=== PATIENT | female | born 1955 | race Caucasian/White ===

== ENCOUNTER 2019-10-09 09:03 | Inpatient (IN) | payer BC ==
[~2019-10-09] VITALS: Ht 162.6 cm; Wt 79.9 kg
[~2019-10-09 09:03] MED LIST: ALBU17AE23 IH; GUAI120S36 PO; LEVO750T6 PO; METH4TAB PO; MOXI400T PO; ONDA4TAB11 PO
[2019-10-09] MEDS ORDERED: LACTATED RINGERS 1,000 ML IV STA (09:42)
[2019-10-09] MEDS ORDERED: KETOROLAC 30 MG/ML VIAL IVP STA (09:42)
[2019-10-09] MEDS ORDERED: ONDANSETRON 4 MG/2 ML (SDV) Z0FRAN IVP ONE (09:45)
[2019-10-09] MEDS ORDERED: KETOROLAC 30 MG/ML VIAL ONE (09:49)
[2019-10-09] MEDS ORDERED: LACTATED RINGERS 1,000 ML IV ONE ×2 (09:49→13:49)
--- NOTE | 2019-10-09 09:56 | ED General ---
General Chief Complaint: Abdominal/GI Problems Stated Complaint: VOMITING;DIARRHEA;HEADACHE;CHILLS Nursing Triage Note: Pt c/o nausea, vomiting, diarrhea, headache, fatigue and body aches. Pt reports being swabbed for COVID-19 on Sunday at [facility], but hasn't received results yet. Nursing Sepsis Screen: No Definite Risk Source of Information: Patient Exam Limitations: No Limitations History of Present Illness Date Seen by Provider: Oct 09, 2019 Time Seen by Provider: 09:35 Initial Comments here with nausea, vomiting, diarrhea, headache, fatigue and body aches. Seen on 10/04 at [facility] for same as well as here and worked up for possible tick bites. Tick studies ordered. Also had COVID evaluation done at [facility] on the and she does not know the results. States she continues to feel poorly. Did have takes on her late last week and thought one might have been a little engorged. Also has traveled to [facility] a week ago. Denies COVID contacts. The doxycycline that she is on is not helping and neither is the nausea medicine. Overall states she feels weak and not well. Timing/Duration: 5-6 Days, Getting Worse Severity: Moderate Modifying Factors: improves with Rest Associated Systoms: Cough; No Diaphoresis; Fever/Chills, Malaise, Nausea/Vomiting; No Shortness of Air; Weakness Allergies and Home Medications Allergies Coded Allergies: codeine (Unverified Adverse Reaction, Unknown, NAUSEA/VOMITTING, 10/07/19) prednisone (Unverified Adverse Reaction, Unknown, PSYCH, 10/07/19) Uncoded Allergies: PENICILLIN (Adverse Reaction, Unknown, 10/07/19) Home Medications Albuterol 17 Gm Aerosol, 1 GM IH Q6H Prescribed by: JEVON ALANIZ MD on 07/12/09203 Guaifenesin/D-Methorphan Hb 120 Ml Syrup, 10 ML PO Q6H Prescribed by: JONATAN HERNANDEZ on 02/12/14 173 Levofloxacin 750 Mg Tablet, 750 MG PO DAILY Prescribed by: JONATAN HERNANDEZ on 02/12/14 172 Methylprednisolone 4 Mg/Dose-Pack Tab.ds.pk, 0 PO UD Prescribed by: JEVON ALANIZ MD on 07/12/09203 Moxifloxacin Hcl 400 Mg Tablet, 400 MG PO DAILY Prescribed by: JEVON ALANIZ MD on 5/24/10 0204 Ondansetron 4 Mg Tab.rapdis, 4 MG PO Q6H PRN for NAUSEA/VOMITING Prescribed by: CINTIA COPE on 10/07/19 1351 Patient Home Medication List Home Medication List Reviewed: Yes Review of Systems Review of Systems Constitutional: see HPI; No chills; fever, malaise EENTM: No nose congestion, No nose pain, No throat pain Respiratory: cough, short of breath Cardiovascular: No chest pain, No edema Gastrointestinal: No abdominal pain; diarrhea, nausea, vomiting Genitourinary: No dysuria, No frequency Musculoskeletal: muscle pain Skin: no symptoms reported All Other Systems Reviewed Negative Unless Noted: Yes Past Vnnnjkm-Yylxhz-Ewlebq Hx Past Med/Social Hx: Reviewed Nursing Past Med/Soc Hx Patient Social History Alcohol Use: Occasionally Uses Alcohol Beverage of Choice: Vodka Recreational Drug Use: No Smoking Status: Former Smoker Type Used: Cigarettes 2nd Hand Smoke Exposure: No Recent Foreign Travel: No Contact w/Someone Who Travel: No Recent Infectious Disease Expo: No Immunizations Up To Date Date of Influenza Vaccine: Jan 19, 2014 Past Medical History Surgeries: Yes (HENRIA, breast implants) Breast, Hysterectomy, Oophorectomy Respiratory: No Cardiac: Yes High Cholesterol 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 oz. 63.559507sh; 25.00 BMI Method:Stated General Appearance: No Apparent Distress, WD/WN HEENT: PERRL/EOMI, Pharynx Normal Neck: Non Tender, Supple Respiratory: Lungs Clear, Normal Breath Sounds, Other (O2 sat 91% on room air) Cardiovascular: No Murmur, Tachycardia Gastrointestinal: Non Tender, Soft Back: Normal Inspection, No CVA Tenderness, No Vertebral Tenderness Extremity: Normal Range of Motion, Non Tender Neurologic/Psychiatric: Alert, Oriented x3 Skin: normal color, warm/dry Focused Exam Lactate Level 10/09/19 10:55: Lactic Acid Level 1.19 Lactic Acid Level Laboratory Tests Test 10/09/19 10:55 Lactic Acid Level 1.19 MMOL/L (0.50-2.00) Progress/Results/Core Measures Suspected Sepsis Recent Fever Within 48 Hours: Yes Infection Criteria Present: None New/Unexplained Altered Menta: No Sepsis Screen: No Definite Risk SIRS Temperature: Pulse: 96 Respiratory Rate: 20 Laboratory Tests 10/09/19 10:55: White Blood Count 3.3L Blood Pressure 108 /60 Mean: 76 10/09/19 10:55: Lactic Acid Level 1.19 Laboratory Tests 10/09/19 10:55: Creatinine 0.58L, INR Comment 1.0, Platelet Count 135, Total Bilirubin 0.3 Results/Orders Lab Results Laboratory Tests Test 10/09/19 10:15 10/09/19 10:55 Range/Units Urine Color YELLOW Urine Clarity CLEAR Urine pH 5.5 5-9 Urine Specific [place] 1.025 H 1.016-1.022 Urine Protein 1+ H NEGATIVE Urine Glucose (UA) NEGATIVE NEGATIVE Urine Ketones 1+ H NEGATIVE Urine Nitrite NEGATIVE NEGATIVE Urine Bilirubin NEGATIVE NEGATIVE Urine Urobilinogen 0.2 < = 1.0 MG/DL Urine Leukocyte Esterase NEGATIVE NEGATIVE Urine RBC (Auto) NEGATIVE NEGATIVE Urine RBC NONE /HPF Urine WBC RARE /HPF Urine Squamous Epithelial Cells 2-5 /HPF Urine Crystals NONE /LPF Urine Bacteria TRACE /HPF Urine Casts NONE /LPF Urine Mucus SMALL H /LPF Urine Culture Indicated NO White Blood Count 3.3 L 4.3-11.0 10^3/uL Red Blood Count 4.20 L 4.35-5.85 10^6/uL Hemoglobin 13.2 11.5-16.0 G/DL Hematocrit 39 35-52 % Mean Corpuscular Volume 92 80-99 FL Mean Corpuscular Hemoglobin 31 25-34 PG Mean Corpuscular Hemoglobin Concent 34 32-36 G/DL Red Cell Distribution Width 12.8 10.0-14.5 % Platelet Count 135 130-400 10^3/uL Mean Platelet Volume 10.2 7.4-10.4 FL Neutrophils (%) (Auto) 66 42-75 % Lymphocytes (%) (Auto) 22 12-44 % Monocytes (%) (Auto) 12 0-12 % Eosinophils (%) (Auto) 0 0-10 % Basophils (%) (Auto) 0 0-10 % Neutrophils # (Auto) 2.2 1.8-7.8 X 10^3 Lymphocytes # (Auto) 0.7 L 1.0-4.0 X 10^3 Monocytes # (Auto) 0.4 0.0-1.0 X 10^3 Eosinophils # (Auto) 0.0 0.0-0.3 10^3/uL Basophils # (Auto) 0.0 0.0-0.1 10^3/uL Prothrombin Time 13.1 12.2-14.7 SEC INR Comment 1.0 0.8-1.4 Activated Partial Thromboplast Time 36 H 24-35 SEC D-Dimer 2.01 H 0.00-0.49 UG/ML Sodium Level 132 L 135-145 MMOL/L Potassium Level 3.3 L 3.6-5.0 MMOL/L Chloride Level 101 98-107 MMOL/L Carbon Dioxide Level 22 21-32 MMOL/L Anion Gap 9 5-14 MMOL/L Blood Urea Nitrogen 9 7-18 MG/DL Creatinine 0.58 L 0.60-1.30 MG/DL Estimat Glomerular Filtration Rate > 60 BUN/Creatinine Ratio 16 Glucose Level 123 H 70-105 MG/DL Lactic Acid Level 1.19 0.50-2.00 MMOL/L Calcium Level 8.0 L 8.5-10.1 MG/DL Corrected Calcium 8.4 L 8.5-10.1 MG/DL Total Bilirubin 0.3 0.1-1.0 MG/DL Aspartate Amino Transf (AST/SGOT) 48 H 5-34 U/L Alanine Aminotransferase (ALT/SGPT) 69 H 0-55 U/L Alkaline Phosphatase 51 40-136 U/L Lactate Dehydrogenase 276 H 125-220 U/L C-Reactive Protein High Sensitivity 2.29 H 0.00-0.50 MG/DL Total Protein 6.3 L 6.4-8.2 GM/DL Albumin 3.5 3.2-4.5 GM/DL My Orders Orders - JADYN FOSTER MD Cbc With Automated Diff (10/09/19 09:42) Comprehensive Metabolic Panel (10/09/19 09:42) Blood Culture (10/09/19 09:42) Sputum Culture (10/09/19 09:42) Urinalysis (10/09/19 09:42) Urine Culture (10/09/19 09:42) Protime With Inr (10/09/19 09:42) Partial Thromboplastin Time (10/09/19 09:42) Chest 1 View, Ap/Pa Only (10/09/19 09:42) Ed Iv/Invasive Line Start (10/09/19 09:42) Vital Signs Adult Sepsis Patie Q15M (10/09/19 09:42) O2 (10/09/19 09:42) Remove Rings In Anticipation O (10/09/19 09:42) Lactic Acid Analyzer (10/09/19 09:42) Fibrin Degradation Products (10/09/19 09:42) Procalcitonin (Pct) (10/09/19 09:42) Hs C Reactive Protein (10/09/19 09:42) Erythrocyte Sedimentation Rate (10/09/19 09:42) LDH (10/09/19 09:42) Ondansetron Injection (Zofran Injectio (10/09/19 09:45) Lactated Ringers (Lr 1000 Ml Iv Solution (10/09/19 09:42) Ketorolac Injection (Toradol Injection) (10/09/19 09:42) Covid-19 External Lab Results (10/09/19 09:56) Dexamethasone Tablet (Decadron Tablet) (10/09/19 10:33) Acetaminophen Tablet (Tylenol Tablet) (10/09/19 11:56) Fentanyl Injection (Sublimaze Injection (10/09/19 11:56) Medications Given in ED Current Medications Medications Dose Ordered Sig/Steven Route Start Time Stop Time Status Last Admin Dose Admin Ondansetron HCl 4 mg ONCE ONCE IVP 10/09/19 09:45 10/09/19 09:46 DC 10/09/19 10:03 4 MG Vital Signs/I&O 10/09/19 09:15 Temp 37.5 Pulse 96 Resp 20 B/P (MAP) 108/60 (76) Pulse Ox 94 O2 Delivery Room Air Capillary Refill : Less Than 3 Seconds Blood Pressure Mean: 76 Progress Note : Progress Note seen and evaluated. IV, labs, UA, chest x-ray and COVID and influenza screens ordered. I did discuss the case with [facility] sponsorship manager and found that the patient actually is COVID positive as noted today on recheck return of lab results. We have canceled R influenza and COVID screen subsequently. LR 1 L bolus, Zofran 4 mg IV and Toradol 15 mg IV ordered. We will add 6 mg of Decadron by mouth due to COVID findings relative hypoxia. Monitor patient. 1125: I did discuss the case with Dr. Stephens, on-call for the positive COVID-19 service. We reviewed patient's labs thus far and she is pending x-ray but he accepts her for admission given her need for oxygen and positive status. Monitor patient. 1209: Orders are written. Chest x-ray radiology read shows no acute findings although I disagree and think that there are some right lower lateral infiltrates. I dis cussed this with the radiologist sponsorship manager who agrees. Likely COVID related to pneumonia. Pro-calcitonin pending. Dr. Stephens updated. Patient agrees to admission. Tylenol 1 g by mouth and fentanyl 50 g IV ordered for headache. Diagnostic Imaging Diagonstic Imaging: Xray Plain Films/CT/US/NM/MRI: chest Comments [facility] [place], [place] NAME: SUMI ZAYAS [facility] REC#: [id number] PT STATUS: REG ER : 1955 PHYSICIAN: JADYN FOSTER MD ADMIT DATE: 10/09/19/ER Draft Date of Exam:10/09/19 CHEST 1 VIEW, AP/PA ONLY INDICATION: Fatigue, hypoxia and COVID-19 positive. AP view of the chest is obtained with comparison made study of 02/12/2014. FINDINGS: Heart size and pulmonary vascularity are within normal limits, and the lungs are clear, bilaterally. IMPRESSION: Unremarkable chest. Dictated on workstation # [id number] Dict: 10/09/19 1138 Trans: 10/09/19 1140 CVB [id number] Interpreted by: OMAIRA CHOE MD Electronically signed by: Departure Impression Primary Impression: 2019 novel coronavirus disease (COVID-19) Disposition: ADMITTED INPATIENT Condition: Stable Admissions Decision to Admit Reason: Admit from ER (General) Decision to Admit/Date: Oct 09, 2019 Time/Decision to Admit Time: 11:25 Departure-Patient Inst. Referrals: NO,LOCAL PHYSICIAN (PCP/Family) Primary Care Physician JADYN FOSTER MD Oct 09, 2019 09:56
--- NOTE | 2019-10-09 10:27 | NUR ---
Lab called to request blood draw.
[2019-10-09] MEDS ORDERED: dexAMETHasone 6 MG TAB (DECADRON) PO STA (10:33)
[2019-10-09] MEDS ORDERED: dexAMETHasone 6 MG TAB (DECADRON) ONE (10:51)
[2019-10-09 11:16] LABS: BASOPHILS % (AUTO) 0 % (0-10); EOSINOPHILS % (AUTO) 0 % (0-10); HEMATOCRIT 39 % (35-52); HEMOGLOBIN 13.2 G/DL (11.5-16.0); LYMPHOCYTES # (AUTO) 0.7 X 10^3 (1.0-4.0); LYMPHOCYTES % (AUTO) 22 % (12-44); MEAN CORPUSCULAR HEMOGLOBIN 31 PG (25-34); MEAN CORPUSCULAR HGB CONC 34 G/DL (32-36); MEAN CORPUSCULAR VOLUME 92 FL (80-99); MEAN PLATELET VOLUME 10.2 FL (7.4-10.4); MONOCYTES # (AUTO) 0.4 X 10^3 (0.0-1.0); MONOCYTES % (AUTO) 12 % (0-12); NEUTROPHILS # (AUTO) 2.2 X 10^3 (1.8-7.8); NEUTROPHILS % (AUTO) 66 % (42-75); PLATELET COUNT 135 10^3/uL (130-400); RED CELL DISTRIBUTION WIDTH 12.8 % (10.0-14.5); WHITE BLOOD COUNT 3.3 10^3/uL (4.3-11.0)
[2019-10-09 11:17] LABS: CLARITY,URINE CLEAR; COLOR,URINE YELLOW
[2019-10-09 11:18] LABS: BACTERIA,URINE TRACE /HPF; BILIRUBIN,URINE NEGATIVE (NEGATIVE); GLUCOSE, URINE (UA) NEGATIVE (NEGATIVE); KETONES,URINE 1+ (NEGATIVE); LEUKOCYTE ESTERASE ,URINE NEGATIVE (NEGATIVE); NITRITE,URINE NEGATIVE (NEGATIVE); PH,URINE 5.5 (5-9); PROTEIN,URINE 1+ (NEGATIVE); WBC,URINE RARE /HPF
[2019-10-09 11:37] LABS: FIBRIN DEGRADATION PRODUCTS 2.01 UG/ML (0.00-0.49); PROTHROMBIN TIME PATIENT 13.1 SEC (12.2-14.7)
--- NOTE | 2019-10-09 11:40 | Diagnostic Imaging Report ---
INDICATION: Fatigue, hypoxia and COVID-19 positive. AP view of the chest is obtained with comparison made study of 02/12/2014. FINDINGS: Heart size and pulmonary vascularity are within normal limits, and the lungs are clear, bilaterally. IMPRESSION: Unremarkable chest. Dictated by: Dictated on workstation # [id number]
[2019-10-09] MEDS ORDERED: fentaNYL INJECTION 100 MCG/2 ML AMP IVP STA (11:56)
[2019-10-09] MEDS ORDERED: ACETAMINOPHEN 500 MG TAB (TYLENOL) PO STA (11:56)
[2019-10-09 12:00] LABS: ALANINE AMINOTRANSFERASE 69 U/L (0-55); ALBUMIN 3.5 GM/DL (3.2-4.5); ALKALINE PHOSPHATASE 51 U/L (40-136); BILIRUBIN,TOTAL 0.3 MG/DL (0.1-1.0); BUN/CREATININE RATIO 16; CARBON DIOXIDE 22 MMOL/L (21-32); CHLORIDE 101 MMOL/L (98-107); CREATININE SERUM 0.58 MG/DL (0.60-1.30); GFR ESTIMATED > 60; GLUCOSE 123 MG/DL (70-105); POTASSIUM 3.3 MMOL/L (3.6-5.0); SODIUM 132 MMOL/L (135-145); TOTAL PROTEIN 6.3 GM/DL (6.4-8.2)
[2019-10-09 12:22] LABS: ERYTHROCYTE SEDIMENTATION RATE 24 MM/HR (0-30)
[2019-10-09 13:48] VITALS: BP 117/84
[2019-10-09 13:49] VITALS: BP 117/84
[2019-10-09] MEDS ORDERED: ACETAMINOPHEN 500 MG TAB (TYLENOL) PO PRN (14:15)
[2019-10-09] MEDS ORDERED: fentaNYL INJECTION 100 MCG/2 ML AMP IV PRN (14:15)
[2019-10-09] MEDS ORDERED: LACTATED RINGERS 1,000 ML IV SCH (14:15)
[2019-10-09] MEDS ORDERED: FLUT16SP22 NSEACH (15:26)
[2019-10-09] MEDS ORDERED: DOXY100C2 PO (15:26)
[2019-10-09] MEDS ORDERED: ALBU18HF2 INH (15:26)
[2019-10-09] MEDS ORDERED: ASPI-983 PO (15:26)
[2019-10-09] MEDS ORDERED: CYAN500T52 SL (15:26)
[2019-10-09] MEDS ORDERED: FLUT1BLS IN (15:26)
[2019-10-09] MEDS ORDERED: CHOL100048 PO (15:26)
[2019-10-09] MEDS ORDERED: CETI10TA17 PO (15:26)
[2019-10-09] MEDS ORDERED: MONT10TA26 PO (15:26)
[2019-10-09] MEDS ORDERED: ONDA4TAB11 PO (15:26)
[2019-10-09] MEDS ORDERED: ASCO250T17 PO (15:26)
--- NOTE | 2019-10-09 15:26 | NUR ---
SPOKE WITH THE PT (I CALLED HER ROOM PHONE) AND WENT THRU THE EXT MED HISTORY TO COMPLETE THE MED REC PT SAYS SHE USES BREO AND ALBUTEROL HFA NEEDED OTC MEDS: ZYRTEC VIT B12 VIT D3 VIT C ASPIRIN 81MG
[2019-10-09 16:00] VITALS: BP 112/73
[2019-10-09] MEDS ORDERED: diphenhydrAMINE 25 MG TAB (BENADRYL) PO PRN (18:30)
[2019-10-09] MEDS ORDERED: ONDANSETRON 4 MG (ZOFRAN) ORAL DISSOLVE TAB PO PRN (18:30)
[2019-10-09] MEDS ORDERED: BISACODYL 10 MG SUPP (DULCOLAX) PR PRN (18:30)
[2019-10-09] MEDS ORDERED: polyethylene glycoL POWDER 17 GM (MIRALAX) PACK PO PRN (18:30)
[2019-10-09] MEDS ORDERED: ACETAMINOPHEN 325 MG TABLET PO PRN (18:30)
[2019-10-09] MEDS ORDERED: ANTACID SUSP 30 ML UDC (MYLANTA) PO PRN (18:30)
[2019-10-09 18:58] VITALS: BP 108/60
[2019-10-09] MEDS: ENOXAPARIN 40 MG/0.4 ML (LOVENOX) SYR SC SCH (19:01)
[2019-10-09] MEDS: ALPRAZolam 0.5 MG (XANAX) TAB PO PRN (19:01)
--- NOTE | 2019-10-09 19:06 | NUR ---
MDI ALBUTEROL Q6 AND PRN. AEROBEKA PRN FOR SECRETION CLEARANCE.RT WILL REASSESS IN 74H Addendum: 10/09/19 at 1906 by SARAH WILKINSON RT Amended: Links added.
[2019-10-09 20:00] VITALS: BP 103/66
[2019-10-09] MEDS: MONTELUKAST 10 MG (SINGULAIR) TAB PO SCH (20:20)
[2019-10-09] MEDS: inSUlin ASPART (NovoLOG) 1 UNIT/0.01 ML (CHARGE PER UNIT) SC SCH (20:20)
[2019-10-09] MEDS: DOCUSATE SODIUM 100 MG (COLACE) CAP PO SCH (20:21)
[2019-10-09] MEDS: SENNOSIDES 8.6 MG (SENOKOT) TAB PO SCH (20:21)
[2019-10-09] MEDS: ADVAIR HFA 115/21 MCG INHALER 8 GM IH PRN (22:17)
[2019-10-09] MEDS: RT-ALBUTEROL INHALER HFA (VENTOLIN HFA) 18 GM IH SCH (22:17)
[2019-10-10] VITALS (7 sets, daily range): BP systolic 92–135; BP diastolic 50–80
[2019-10-10] MEDS: ADVAIR HFA 115/21 MCG INHALER 8 GM IH PRN ×2 (07:01→19:07)
[2019-10-10] MEDS: RT-ALBUTEROL INHALER HFA (VENTOLIN HFA) 18 GM IH SCH ×3 (07:01→19:06)
[2019-10-10] MEDS: inSUlin ASPART (NovoLOG) 1 UNIT/0.01 ML (CHARGE PER UNIT) SC SCH ×5 (07:35→20:35)
[2019-10-10 07:50] LABS: BASOPHILS % (AUTO) 0 % (0-10); EOSINOPHILS % (AUTO) 0 % (0-10); HEMATOCRIT 38 % (35-52); HEMOGLOBIN 13.1 G/DL (11.5-16.0); LYMPHOCYTES # (AUTO) 1.4 X 10^3 (1.0-4.0); LYMPHOCYTES % (AUTO) 38 % (12-44); MEAN CORPUSCULAR HEMOGLOBIN 32 PG (25-34); MEAN CORPUSCULAR HGB CONC 34 G/DL (32-36); MEAN CORPUSCULAR VOLUME 93 FL (80-99); MEAN PLATELET VOLUME 10.1 FL (7.4-10.4); MONOCYTES # (AUTO) 0.3 X 10^3 (0.0-1.0); MONOCYTES % (AUTO) 8 % (0-12); NEUTROPHILS # (AUTO) 1.9 X 10^3 (1.8-7.8); NEUTROPHILS % (AUTO) 53 % (42-75); PLATELET COUNT 161 10^3/uL (130-400); RED CELL DISTRIBUTION WIDTH 12.8 % (10.0-14.5); WHITE BLOOD COUNT 3.6 10^3/uL (4.3-11.0)
[2019-10-10 08:11] LABS: ALANINE AMINOTRANSFERASE 62 U/L (0-55); ALBUMIN 3.5 GM/DL (3.2-4.5); ALKALINE PHOSPHATASE 49 U/L (40-136); BILIRUBIN,TOTAL 0.3 MG/DL (0.1-1.0); BUN/CREATININE RATIO 12; CALCIUM 8.3 MG/DL (8.5-10.1); CARBON DIOXIDE 23 MMOL/L (21-32); CHLORIDE 100 MMOL/L (98-107); CREATININE SERUM 0.59 MG/DL (0.60-1.30); GFR ESTIMATED > 60; GLUCOSE 108 MG/DL (70-105); MAGNESIUM 1.6 MG/DL (1.6-2.4); POTASSIUM 3.3 MMOL/L (3.6-5.0); SODIUM 132 MMOL/L (135-145); TOTAL PROTEIN 6.6 GM/DL (6.4-8.2)
[2019-10-10] MEDS: POTASSIUM CL 10MEQ/50ML IVPB 50 ML IV SCH (08:16)
[2019-10-10] MEDS: KCL 20 MEQ TAB (K-DUR) PO SCH (08:17)
[2019-10-10] MEDS: MAGNESIUM 1 GM/100 ML IVPB 100 ML IV SCH ×3 (08:17→09:48)
[2019-10-10] MEDS ORDERED: KCL 20 MEQ TAB (K-DUR) PO ONE ×2 (08:30→10:30)
[2019-10-10] MEDS: ASPIRIN E.C. 81 MG (ECOTRIN) TAB PO SCH (08:38)
[2019-10-10] MEDS: dexAMETHasone 6 MG TAB (DECADRON) PO SCH (08:38)
[2019-10-10] MEDS: DOCUSATE SODIUM 100 MG (COLACE) CAP PO SCH ×2 (08:40→20:34)
[2019-10-10] MEDS: SENNOSIDES 8.6 MG (SENOKOT) TAB PO SCH ×2 (08:40→20:34)
[2019-10-10] MEDS: FLUTICASONE NASAL SPRAY (FLONASE) 16 GM BTL NS SCH (08:40)
--- NOTE | 2019-10-10 10:14 | NUR ---
Received dietary consult for MST score. Note pt is currently COVID PUI. Will monitor PO intake and have full assessment at later date, pending results. Jacque Ann, MS, RD, LD
[2019-10-10] MEDS ORDERED: REMDESIVIR INJ (NON-FORMULARY) 200 MG in NS (IVPB) 210 ML IV NR ×2 (12:00→15:00)
[2019-10-10] MEDS: ENOXAPARIN 40 MG/0.4 ML (LOVENOX) SYR SC SCH (17:37)
--- NOTE | 2019-10-10 20:18 | History & Physical-Hospitalist ---
History of Present Illness HPI/Chief Complaint Corrine Cortez is a 63 year old female with PMH asthma who presented with malaise. She was evaluated for COVID at [facility] on 10/04 and tested positive. She reports having body aches. She reports nausea and vomiting. She has had diarrhea. She reports headaches. She is not having any significant shortness of breath or cough. She denies any change in taste or smell. She denies any fevers or chills. She denies chest pain. Source: patient Exam Limitations: no limitations Date Seen 10/10/19 Time Seen by a Provider: 11:00 Attending Physician Ne Early MD PCP No,Local Physician Referring Physician Date of Admission Oct 09, 2019 at 12:51 Home Medications & Allergies Home Medications Reviewed patient Home Medication Reconciliation performed by pharmacy medication reconciliations county program technician and/or nursing. Patients Allergies have been reviewed. Allergies Allergies Coded Allergies Penicillins (Unverified Adverse Reaction, Unknown, 10/09/19) codeine (Unverified Adverse Reaction, Unknown, NAUSEA/VOMITTING, 10/07/19) prednisone (Unverified Adverse Reaction, Unknown, PSYCH, 10/07/19) Uncoded Allergies PENICILLIN ( Adverse Reaction, Unknown, 10/07/19) Past Itjnlmt-Ncyzqd-Trvrqr Hx Past Med/Social Hx: Reviewed Nursing Past Med/Soc Hx Patient Social History Alcohol Use: Occasionally Uses Alcohol Beverage of Choice: Vodka Recreational Drug Use: No Smoking Status: Former Smoker Type Used: Cigarettes 2nd Hand Smoke Exposure: No Recent Foreign Travel: No Contact w/other who traveled: No Recent Infectious Disease Expo: No Immunizations Up To Date Date of Pneumonia Vaccine: Oct 08, 2017 Date of Influenza Vaccine: Jan 19, 2014 Past Medical History Surgeries: Breast, Hysterectomy, Oophorectomy Cardiac: High Cholesterol Hysterectomy Family History Reviewed Nursing Family Hx No Pertinent Family Hx Review of Systems Constitutional: malaise EENTM: no symptoms reported Respiratory: no symptoms reported Cardiovascular: no symptoms reported Gastrointestinal: diarrhea, nausea, vomiting Genitourinary: no symptoms reported Musculoskeletal: muscle pain Skin: no symptoms reported Psychiatric/Neurological: No Symptoms Reported Physical Exam Physical Exam Vital Signs Vital Signs - First Documented 10/09/19 10/09/19 10/09/19 09:15 14:20 18:58 Temp 37.5 Pulse 96 Resp 20 B/P (MAP) 108/60 (76) Pulse Ox 94 O2 Delivery Room Air O2 Flow Rate 2.00 FiO2 21 Capillary Refill : Less Than 3 Seconds Height, Weight, BMI Height: 5'4" Weight: 140lbs. oz. 63.701974ga; 30.33 BMI Method:Stated General Appearance: No Apparent Distress, Obese HEENT: PERRL/EOMI, Pharynx Normal Neck: Normal Inspection, Supple Respiratory: Lungs Clear, Normal Breath Sounds, No Respiratory Distress Cardiovascular: Regular Rate, Rhythm, No Edema, No Murmur Gastrointestinal: Normal Bowel Sounds, Non Tender, Soft Extremity: Normal Inspection, Non Tender, No Pedal Edema Neurologic/Psychiatric: Alert, Oriented x3, No Motor/Sensory Deficits, Normal Mood/Affect Skin: Normal Color, Warm/Dry Results Results/Procedures Labs Laboratory Tests 10/09/19 10:55 10/10/19 07:35 Patient resulted labs reviewed. Imaging: Reviewed Imaging Report Assessment/Plan Admission Diagnosis Acute respiratory failure due to COVID-19 Admission Status: Inpatient Order (span 2 midnights) Reason for Inpatient Admission: Respiratory failure requiring supplemental oxygen COVID requiring IV antivirals Assessment and Plan COVID-19 Acute respiratory failure with hypoxia Elevated LFTs Steroid induced hyperglycemia Asthma -COVID PCR positive 10/04 at [facility] -Oxygen supplementation as needed, requiring 3 L this morning -Started on Decadron, continue -Discussed risks and benefits of Remdesivir and she provided consent to begin treatment -Monitor CMP daily -Sliding scale insulin -Continue home inhalers -MAT protocol Obesity -Clinically significant, no acute management needs 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
[2019-10-10] MEDS: MONTELUKAST 10 MG (SINGULAIR) TAB PO SCH (20:34)
[2019-10-10] MEDS: ALPRAZolam 0.5 MG (XANAX) TAB PO PRN (21:02)
[2019-10-10] MEDS: MELATONIN 3 MG TABLET PO PRN (21:02)
[2019-10-11] VITALS: BP 125/71
[2019-10-11] MEDS: RT-ALBUTEROL INHALER HFA (VENTOLIN HFA) 18 GM IH SCH ×4 (02:15→20:29)
[2019-10-11 04:00] VITALS: BP 134/72
[2019-10-11 06:01] LABS: BASOPHILS % (AUTO) 0 % (0-10); EOSINOPHILS % (AUTO) 0 % (0-10); HEMATOCRIT 37 % (35-52); HEMOGLOBIN 12.6 G/DL (11.5-16.0); LYMPHOCYTES # (AUTO) 1.2 X 10^3 (1.0-4.0); LYMPHOCYTES % (AUTO) 30 % (12-44); MEAN CORPUSCULAR HEMOGLOBIN 31 PG (25-34); MEAN CORPUSCULAR HGB CONC 34 G/DL (32-36); MEAN CORPUSCULAR VOLUME 93 FL (80-99); MONOCYTES # (AUTO) 0.4 X 10^3 (0.0-1.0); MONOCYTES % (AUTO) 10 % (0-12); NEUTROPHILS # (AUTO) 2.5 X 10^3 (1.8-7.8); NEUTROPHILS % (AUTO) 61 % (42-75); PLATELET COUNT 205 10^3/uL (130-400); RED CELL DISTRIBUTION WIDTH 12.6 % (10.0-14.5); WHITE BLOOD COUNT 4.2 10^3/uL (4.3-11.0)
[2019-10-11 06:28] LABS: ALANINE AMINOTRANSFERASE 55 U/L (0-55); ALBUMIN 3.4 GM/DL (3.2-4.5); ALKALINE PHOSPHATASE 53 U/L (40-136); BILIRUBIN,TOTAL 0.2 MG/DL (0.1-1.0); BUN/CREATININE RATIO 18; CALCIUM 8.5 MG/DL (8.5-10.1); CARBON DIOXIDE 25 MMOL/L (21-32); CHLORIDE 104 MMOL/L (98-107); GFR ESTIMATED > 60; GLUCOSE 88 MG/DL (70-105); MAGNESIUM 1.8 MG/DL (1.6-2.4); POTASSIUM 3.4 MMOL/L (3.6-5.0); SODIUM 139 MMOL/L (135-145); TOTAL PROTEIN 6.2 GM/DL (6.4-8.2)
[2019-10-11] MEDS: MAGNESIUM 1 GM/100 ML IVPB 100 ML IV SCH (06:42)
[2019-10-11] MEDS: POTASSIUM CL 10MEQ/50ML IVPB 50 ML IV SCH (06:43)
[2019-10-11] MEDS: KCL 20 MEQ TAB (K-DUR) PO SCH (06:44)
[2019-10-11] MEDS: inSUlin ASPART (NovoLOG) 1 UNIT/0.01 ML (CHARGE PER UNIT) SC SCH ×4 (06:44→21:51)
[2019-10-11] MEDS ORDERED: KCL 20 MEQ TAB (K-DUR) PO ONE (06:45)
[2019-10-11] MEDS: ADVAIR HFA 115/21 MCG INHALER 8 GM IH PRN (07:22)
[2019-10-11] MEDS: ASPIRIN E.C. 81 MG (ECOTRIN) TAB PO SCH (08:04)
[2019-10-11] MEDS: FLUTICASONE NASAL SPRAY (FLONASE) 16 GM BTL NS SCH (08:04)
[2019-10-11] MEDS: dexAMETHasone 6 MG TAB (DECADRON) PO SCH (08:04)
[2019-10-11] MEDS: DOCUSATE SODIUM 100 MG (COLACE) CAP PO SCH ×2 (08:05→20:40)
[2019-10-11] MEDS: SENNOSIDES 8.6 MG (SENOKOT) TAB PO SCH ×2 (08:05→20:40)
[2019-10-11 08:06] VITALS: BP 108/71
[2019-10-11] MEDS: REMDESIVIR INJ (NON-FORMULARY) 100 MG in NS (IVPB) 230 ML IV SCH (09:10)
[2019-10-11] MEDS: ONDANSETRON 4 MG/2 ML (SDV) Z0FRAN IV PRN (11:51)
[2019-10-11 12:00] VITALS: BP 113/71
--- NOTE | 2019-10-11 13:14 | NUR ---
RN WENT INTO PTS ROOM TO DELIVER LUNCH TRAY AND PT TOLD ME THAT SHE NEEDED INHALED STEROID INHALER PER HER FRIEND DR RILEY IN [facility]. SHE ASKED ME TO TELL DR EARLY. DR EARLY NOTIFIED AND TOLD RN THAT SHE DOES HAVE ADVAIR THAT SHE CAN USE PRN AND IT DOES HAVE A STEROID IN IT. PT INFORMED BY RN .
--- NOTE | 2019-10-11 13:18 | Progress Note - Hospitalist ---
Subjective HPI/CC On Admission Date Seen by Provider: Oct 11, 2019 Time Seen by Provider: 11:30 Corrine Cortez is a 63 year old female with PMH asthma who presented with malaise. She was evaluated for COVID at [facility] on 10/04 and tested positive. She reports having body aches. She reports nausea and vomiting. She has had diarrhea. She reports headaches. She is not having any significant shortness of breath or cough. She denies any change in taste or smell. She denies any fevers or chills. She denies chest pain. Subjective/Events-last exam she reports feeling a bit better today. She is feeling a bit nauseous though. She is up in her bedside chair. She has been walking around her room. She denies any fevers or chills. Focused Exam Lactate Level 10/09/19 10:55: Lactic Acid Level 1.19 Objective Exam Vital Signs Vital Signs Date Time Temp Pulse Resp B/P (MAP) Pulse Ox O2 Delivery O2 Flow Rate FiO2 10/11/19 08:06 35.7 83 22 108/71 (83) 91 Nasal Cannula 3.00 10/09/19 18:58 21 Capillary Refill : Less Than 3 Seconds General Appearance: No Apparent Distress, Obese Respiratory: Lungs Clear, Normal Breath Sounds, No Respiratory Distress Cardiovascular: Regular Rate, Rhythm, No Edema, No Murmur Gastrointestinal: Normal Bowel Sounds, Non Tender, Soft Extremity: Normal Inspection, Non Tender, No Pedal Edema Neurologic/Psychiatric: Alert, Oriented x3, No Motor/Sensory Deficits, Normal Mood/Affect Skin: Normal Color, Warm/Dry Results/Procedures Lab Laboratory Tests 10/11/19 05:50 Patient resulted labs reviewed. 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
[2019-10-11] MEDS ORDERED: HOLD METFORMIN - RECEIVED CONTRAST 20 ML VIAL IV SCH (13:30)
[2019-10-11] MEDS ORDERED: IOHEXOL 350 MG/ML 100 ML (OMNIPAQUE 350) VIAL IV ONE (13:30)
[2019-10-11] MEDS ORDERED: NS 100 ML (IVPB) BAG IV ONE (13:30)
[2019-10-11 16:19] VITALS: BP 103/69
--- NOTE | 2019-10-11 16:42 | Diagnostic Imaging Report ---
PROCEDURE: CT angiography of the chest with contrast. TECHNIQUE: Multiple contiguous axial images were obtained through the chest after uneventful bolus administration of intravenous contrast. 3D reconstructed CTA MIP acquisitions were also performed. Auto Exposure Controls were utilized during the CT exam to meet ALARA standards for radiation dose reduction. INDICATION: Hypoxia. Covid positive. COMPARISON: Chest radiograph 10/09/2019. FINDINGS: Examination is mildly limited by respiratory motion and contrast timing. No large or central pulmonary embolus. Normal caliber thoracic aorta. Normal heart size. No pericardial effusion. No mediastinal, hilar or axillary lymphadenopathy. Bilateral breast prostheses. Geographic groundglass opacities throughout the lungs are greatest in the right upper lobe. Linear scarring and/or atelectasis in the lung bases. No pleural effusion or pneumothorax. The visualized upper abdominal contents are unremarkable. IMPRESSION: 1. No large or central pulmonary embolus. 2. Geographic groundglass opacities throughout both lungs, greatest in the right upper lobe, would be compatible with reported history of Covid. Dictated by: Dictated on workstation # [id number]
--- NOTE | 2019-10-11 16:53 | NUR ---
DR EARLY NOTIFIED BY THIS RN THAT CTA RESULTS WERE BACK AND RADIOLOGIST REPORT READ NO PE BUT SHE DOES HAVE GROUNDGLASS OPACITIE. NO NEW ORDERS.
[2019-10-11] MEDS: ENOXAPARIN 40 MG/0.4 ML (LOVENOX) SYR SC SCH (17:19)
[2019-10-11 20:00] VITALS: BP 102/68
[2019-10-11] MEDS: ALPRAZolam 0.5 MG (XANAX) TAB PO PRN (20:40)
[2019-10-11] MEDS: MONTELUKAST 10 MG (SINGULAIR) TAB PO SCH (20:40)
[2019-10-11] MEDS: MELATONIN 3 MG TABLET PO PRN (20:40)
[2019-10-12] VITALS (8 sets, daily range): BP systolic 90–109; BP diastolic 55–74
--- NOTE | 2019-10-12 00:36 | NUR ---
Aide notified me that the patients oxygen saturation was 83%. Patient is alert and oriented and is not showing any signs of respiratory distress. I contact RT who comes up and places the patient on 10 liters of oxygen via nasal cannula high flow. Patient now saturating at 93%. Will continue to monitor.
[2019-10-12 05:48] LABS: BASOPHILS % (AUTO) 0 % (0-10); EOSINOPHILS % (AUTO) 0 % (0-10); HEMATOCRIT 38 % (35-52); HEMOGLOBIN 12.9 G/DL (11.5-16.0); LYMPHOCYTES # (AUTO) 1.2 X 10^3 (1.0-4.0); LYMPHOCYTES % (AUTO) 23 % (12-44); MEAN CORPUSCULAR HEMOGLOBIN 31 PG (25-34); MEAN CORPUSCULAR HGB CONC 34 G/DL (32-36); MEAN CORPUSCULAR VOLUME 93 FL (80-99); MEAN PLATELET VOLUME 9.8 FL (7.4-10.4); MONOCYTES # (AUTO) 0.7 X 10^3 (0.0-1.0); MONOCYTES % (AUTO) 13 % (0-12); NEUTROPHILS # (AUTO) 3.3 X 10^3 (1.8-7.8); NEUTROPHILS % (AUTO) 64 % (42-75); PLATELET COUNT 262 10^3/uL (130-400); RED CELL DISTRIBUTION WIDTH 12.9 % (10.0-14.5); WHITE BLOOD COUNT 5.2 10^3/uL (4.3-11.0)
[2019-10-12 06:08] LABS: ALANINE AMINOTRANSFERASE 50 U/L (0-55); ALBUMIN 3.4 GM/DL (3.2-4.5); ALKALINE PHOSPHATASE 51 U/L (40-136); BILIRUBIN,TOTAL 0.3 MG/DL (0.1-1.0); BUN/CREATININE RATIO 23; CALCIUM 8.5 MG/DL (8.5-10.1); CARBON DIOXIDE 23 MMOL/L (21-32); CHLORIDE 103 MMOL/L (98-107); CREATININE SERUM 0.62 MG/DL (0.60-1.30); GFR ESTIMATED > 60; GLUCOSE 102 MG/DL (70-105); POTASSIUM 3.9 MMOL/L (3.6-5.0); SODIUM 138 MMOL/L (135-145); TOTAL PROTEIN 6.5 GM/DL (6.4-8.2)
[2019-10-12] MEDS: KCL 20 MEQ TAB (K-DUR) PO SCH (06:09)
[2019-10-12] MEDS: MAGNESIUM 1 GM/100 ML IVPB 100 ML IV SCH (06:09)
[2019-10-12] MEDS: POTASSIUM CL 10MEQ/50ML IVPB 50 ML IV SCH (06:09)
[2019-10-12] MEDS: inSUlin ASPART (NovoLOG) 1 UNIT/0.01 ML (CHARGE PER UNIT) SC SCH ×4 (06:09→20:45)
[2019-10-12] MEDS: REMDESIVIR INJ (NON-FORMULARY) 100 MG in NS (IVPB) 230 ML IV SCH (08:33)
[2019-10-12] MEDS: ASPIRIN E.C. 81 MG (ECOTRIN) TAB PO SCH (08:34)
[2019-10-12] MEDS: SENNOSIDES 8.6 MG (SENOKOT) TAB PO SCH ×2 (08:34→19:50)
[2019-10-12] MEDS: DOCUSATE SODIUM 100 MG (COLACE) CAP PO SCH ×2 (08:34→19:50)
[2019-10-12] MEDS: dexAMETHasone 6 MG TAB (DECADRON) PO SCH (08:34)
[2019-10-12] MEDS: FLUTICASONE NASAL SPRAY (FLONASE) 16 GM BTL NS SCH (08:35)
[2019-10-12] MEDS: RT-ALBUTEROL INHALER HFA (VENTOLIN HFA) 18 GM IH SCH ×4 (10:09→23:11)
[2019-10-12] MEDS: ADVAIR HFA 115/21 MCG INHALER 8 GM IH PRN (10:13)
[2019-10-12] MEDS ORDERED: LORazepam 0.5 MG (ATIVAN) TABLET PO STA (11:41)
[2019-10-12] MEDS ORDERED: ALPRAZolam 1 MG (XANAX) TAB PO ONE (12:15)
--- NOTE | 2019-10-12 13:17 | Progress Note - Hospitalist ---
Subjective HPI/CC On Admission Date Seen by Provider: Oct 12, 2019 Time Seen by Provider: 11:30 Corrine Cortez is a 63 year old female with PMH asthma who presented with malaise. She was evaluated for COVID at [facility] on 10/04 and tested positive. She reports having body aches. She reports nausea and vomiting. She has had diarrhea. She reports headaches. She is not having any significant shortness of breath or cough. She denies any change in taste or smell. She denies any fevers or chills. She denies chest pain. Subjective/Events-last exam She reports feeling "bitchy" this morning. She he is not sure what is going on because normally "everybody likes me". She does not feel any more short of breath today. She is requiring a bit more oxygen. She is nervous and asks if she is going to be okay. She denies any fevers or chills. She denies any chest pain. She wants to think a shower. She wants her sheets to be changed. She has no other complaints or concerns. Objective Exam Vital Signs Vital Signs Date Time Temp Pulse Resp B/P (MAP) Pulse Ox O2 Delivery O2 Flow Rate FiO2 10/12/19 08:00 Nasal Cannula 8.00 10/12/19 03:28 36.7 78 12 100/67 (78) 94 10/09/19 18:58 21 Capillary Refill : Less Than 3 Seconds General Appearance: No Apparent Distress, Anxious, Obese HEENT: PERRL/EOMI, Pharynx Normal Neck: Normal Inspection, Supple Respiratory: Lungs Clear, Normal Breath Sounds, No Respiratory Distress, Other (wearing nasal cannula) Cardiovascular: Regular Rate, Rhythm, No Edema, No Murmur Gastrointestinal: Normal Bowel Sounds, Non Tender, Soft Extremity: Normal Inspection, Non Tender, No Pedal Edema Neurologic/Psychiatric: Alert, Oriented x3, No Motor/Sensory Deficits, Normal Mood/Affect Skin: Normal Color, Warm/Dry Results/Procedures Lab Laboratory Tests 10/12/19 05:35 Patient resulted labs reviewed. 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
[2019-10-12] MEDS: MELATONIN 3 MG TABLET PO PRN (19:50)
[2019-10-12] MEDS: ENOXAPARIN 40 MG/0.4 ML (LOVENOX) SYR SC SCH (19:50)
[2019-10-12] MEDS: MONTELUKAST 10 MG (SINGULAIR) TAB PO SCH (19:50)
--- NOTE | 2019-10-12 20:30 | NUR ---
THIS RT WAS STOPPED IN HALLWAY BY MEDIA ACCOUNT EXECUTIVE WITH CONCERNS OF LOW SATS OF 87%.PT REFUSING VAPOTHERM AND IS FULL CODE. RN DID STATE THAT RT IS IN ROOM UNABLE TO INCREASE SPO2. THIS RT MEETS RT NATY EXITING PT ROOM . THIS RT ,NATY ,AND LINDA SIMPSON REMAT PT AND AGREE AGGRESIVE THERAPY . RT NATY STATES PT AGREES TO WEARING VAPOTHERM.WHICH SHE LEAVES TO GET EQUIPMENT. THIS RT ENTERS ROOM WITH MEDIA ACCOUNT EXECUTIVE ,LINDA THOMAS AND RT NATY. NOTED PT IS SATING 87% ON 7 LPM HFNC. I INTRODUCE MYSELF EXPLAINING I AM HERE TO HELP HER THERAPIST TO TAKE CARE OF HER . EDUCATION IS GIVEN TO PT ON IMPORTANCE OF INCREASING SPO2. AT THIS TIME JAE MDI IS GIVEN . THIS RT HANDED PT SMI PT STATES SHE HAS ALREADY DONE IT 5 TIMES TODAY .AEROBIKA IS DONE 12 TIMES SMI IS ALSO DONE. PT GIVES WEAK EFFORT . PT IS MORE CONCERNED WITH STATING THAT SHE WAS NOT EDUCATED ON ITEMS AT BEDSIDE AND SINCE THEN SHE HAS WORSENED. PT IS ENCOURGED TO CONTINUE TO AEROBIKA AND SMI Q2 WA. BEFORE VAPOTHERM IS PLACED ON PT EDUCATION IS GIVEN TO PT . PT ACTS THOUGH SHE HAS NO IDEA WHAT WE ARE TALKING ABOUT . EACH ITEM IS SHOWN TO PT IN ATTEMPT TO LESSEN ANXIETY. PT CONTSTANTLY BREAKING EYE CONTACT AND CONTINUE TO COMPLAIN THAT SHE IS WORSENING AND ITS BECAUSE SHE WAS NOT EDUCATIED ON SMI AND IS AT BEDSIDE . PT COMPLAINS SHE CAN NOT HEAR THIS RT VIA MY MASK. LINDA SIMPSON REPEATS TO PT MY WORDS . BEFORE PLACING VAPOTHERM ON. PT IS EDUCATED THAT SHE WILL WEAR IT SAME CURRENT NC AND IT COULD POSSIBLY FEEL STRONG AND OR NOT ENOUGH OXYGEN AND TO HAVE PATIENCE AND WILL ADJUST FOR COMFORT.ATTEMPTING TO PLACE PT ON VAPOTHERM. PT BEGINS TO THRASH HEAD AROUND AND YELL" I WOULD RATHER THAT WEAR THAT" PT IS EDUCATED ON HER RIGHTS. PT BECOMES AGGERSIVE GESTERUING TO THIS RT THAT I DO NOT CARE . BOTH RNS SUPPORT PT WITH WE DO CARE AND SHE DOES HAVE RIGHTS A PT AND HER LUNGS ARE NOT WELL BEFORE WE NEED TO CONTINUE WITH CARE TO GET BETTER. VAPOTHERM 20 LPM FIO2 100% SPO2 BARLEY 91%. PT CONTINUES TO MAKE COMMENTS THAT SHE WONT BE ABLE TO GO TO BATHROOM . RN ENFORCE THAT SHE CAN THEY WILL ASSIST HER. PT ASKED IF SHE HAS TO GO TO RESTROOM AT THIS TIME PT DENIES PT THEN STATES SHE WILL JUST PEE IN HER DIAPER. RN ENCOURGES PT TO USE RESTROOM EDUCATION GIVEN ON IMPORTANCE OF UTI AND MUSCLE MOVEMENTS. COMMENTS THIS RT SHOULD NOT BE TALKING BECAUSE OF KIND OF MASK I AM WEARING PT ATTEMPTING TO VIDEO RECORD VIA CELL PHONE PT STATES SHE WANTS TO POST ON FACEBOOK ABOUT HER CARE AT FACILITY , PT ASKS WHO LINDA SIMPSON FOR HER NAME MAKES A NOTE IN HER CELL PHONE. THIS RT RT NATY AND LINDA SIMPSON EXIT PT ROOM AT 0 WHILE LINDA THOMAS CONTINUES TO SOOTH PT.
--- NOTE | 2019-10-12 20:30 | NUR ---
In patients room getting vitals. Patient oxygen saturation at 87% on 7L nasal cannula. Notified Daylin RN and respiratory therapy and requested them to come and assess the patient. Patient stable. Will continue to monitor.
--- NOTE | 2019-10-12 20:50 | NUR ---
Went into patient room with Maribel LOVE, Terrie LOVE, and Daylin RN to assess patient status. Patient was immediately suspicious and unfriendly to incoming staff members. Maribel LOVE assessed patient lung sounds while Terrie assessed oxygen saturation. Patient still sating at 87% on 7 liters nasal cannula. Terrie LOEV requests Maribel to go get a vapotherm machine. Patient unhappy with the change in her care and continuously states "I am going to here." At this time Terrie LOVE attempts to educate patient on how to adequately use IS and aerobika. Patient states "thank God someone is finally educating me. I would have been doing myself this whole time is someone would have told me. Thank you for explaining it to me in a way I can understand." Terrie LOVE attempts to inform patient that she will be placed on vapotherm. Terrie LOVE also explains what vapotherm is and why she needs it. At this time patient get agitated and states "I can't understand a word you are saying because of that mask on your face." Daylin RN begins explaining what Terrie LOVE is attempting to educate. Patient states "I am not putting that up my nose. I would rather ." Terrie RT states "we can get you the paperwork for that if you would like." Patient immediately got defensive and yelled "get out, you're going to kill me" to Terrie LOVE. Terrie informs patient that we only want to follow patient wishes. Patient immediately starts asking for her phone and states "I am going to put this on [employer]." I inform patient that we will give her her phone in a second that right now we need to get her hooked up to her vapotherm. Terrie LOVE and Maribel RT get patient hooked up and adjusted to the vapotherm and slide the patients bedside table over to the bed. The patient grabs her phone and turns on her camera. She asks how she is supposed to sleep with this "garden hose" hanging from her face and how was she to get up to go to the bathroom. Daylin RN informs patient that we will help her up to the bathroom. Patient states that she can get up on her own and does not want help. Patient also states "I will just pee myself because I have a diaper on." This RN informs patient that she needs to get up to use the restroom and that we are happy to help. Patient continuously states "you guys don't care about me, "that one" (pointing at Terrie LOVE) wants me ." Daylin RN reminds patient that we are just trying to help her and we do not want her . The patient then states to Daylin RN "you are just like the others." Patient now states she only wants this RN to help her to the restroom. Maribel RT, Terrie RT, and Daylin RN leave the room while I help the patient to the restroom. Patient angrily states she does not want Terrie RT in her room and that "she wants her job." Patient asks for Daylin RNs name and makes a note of it in her phone after returning to bed. Patient stable. Will continue to monitor.
[2019-10-12] MEDS: ADVAIR HFA 115/21 MCG INHALER 8 GM IH SCH (20:52)
--- NOTE | 2019-10-12 22:50 | NUR ---
Patient hits her call light and requests to speak with this RN about her breathing. When I enter patients room and ask her what her questions were she states "If I see that womans face in my room I am going to call the police." I ask the patient who she is referring to and she states "the woman with the big mask on that said she was going to kill me." I inform the patient that Terrie LOVE was just making sure she knew her patient rights. Patient states "now you sound just like the rest of them. I have already informed my "power" and I am going to take her job. She cant say that to me and get away with it." I inform the patient that it is ok to be afraid and that we understand this is a scary time for her. Patient requests that only this RN and Maribel LOVE enter her room. Patient oxygen saturation is 94% on vapotherm. Will continue to monitor.
--- NOTE | 2019-10-12 22:50 | NUR ---
This RT was in another pts room when Kal MCKEON asked me if I would come asses this pts saturation level right after I was finished. When I finished in my other pts room, I went straight to this pts room to asses and to give her MDI txs. This RT educated the pt on vapotherm to increase her O2 levels and stated that it would be very similar to her NC but with more flow. The pt seemed hesitant at first but then agreed to try it after failed attempts to get her O2 levels back up in the 90's while on 7L NC. While in this pts room, Terrie LOVE was notified by Daylin MCKEON and Kal MCKEON that the pts sats were not increasing. Terrie LOVE offered to help asses this pt. Daylin MCKEON, Terrie LOVE and this RT did a remat on this pt. We decided to do more aggressive therapy and to add bronchial hygiene therapy due to the pts most recent CXR. While this RT went to get the vapotherm Kal MCKEON, Daylin MCKEON and Terrie LOVE entered the pts room and Terrie LOVE began to educate the pt on her IS, EZPAP and Aerobika. At this time, this RT enters the room with the vapotherm. This RT starts setting up the vapotherm as Terrie LOVE is still educating her while the pt gave very poor effort. The pt states that nobody showed her how to use anything and just sat it down on the table and told Terrie LOVE thank you. At this time, this RT gave this pt her Adv MDI. After giving said MDI, Terrie LOVE and Maribel LOVE tried placing the NC from the vapotherm on the pt and told the pt that we would adjust for comfort after we put it on her. While doing so, the pt started flailing her head around and stated that "she'd rather then to wear this heavy thing". Terrie LOVE educated her on her pts rights. Pt looks at Terrie LOVE and yells "get out! you don't care if I !". Terrie LOVE reassures the pt that that isn't true and that we are just trying to help her. Following this incident, pt states that she wants her phone immediately so that she can post on Facebook and tells Terrie LOVE that she shouldn't work in the field. She then tells Terrie LOVE that she cannot understand her all of a sudden because of Terrie's RT mask. Anytime after that, Daylin MCKEON had to translate what Terrie LOVE was trying to educate her on. Daylin MCKEON assures the pt that we all care and that is why we are in her room helping and tells the pt that Terrie LOVE is a great therapist and says that she has been a therapist for a very long time. Kal MCKEON also assures the pt that we all are there to help her and not to be scared. Pt is very aggressive and grabs her phone and turns her camera on to the record setting while her phone was propped up against her thighs. Pt is placed on 20L and 100% O2 on the vapotherm at this time. Kal MCKEON and Daylin MCKEON tell the pt to please let them know when she needs to get up to use the restroom so they can assist her since she is now on the vapotherm and that it isn't as "mobile" as the NC was. The pt states that she can get up and go on her own. Kal MCKEON and Daylin MCKEON both tell the pt that they would be more than happy to assist the pt and told her that it was important to get help since she is now on the vapotherm. The pt then states that she will just hold it or go in her diaper since she is wearing one. Kal MCKEON and Daylin MCKEON both educate the pt on the importance of getting up and moving around to keep her muscle strength up and educated the pt on the possibility of a UTI if she were to hold it or a rash if she were to sit in her own urine. Pt then states that she will only go if Kal MCKEON is the one to assist her. At this time, Daylin MCKEON, Terrie LOVE and this RT leave the room. The pts O2 level was 91% at this time.
--- NOTE | 2019-10-12 23:00 | NUR ---
Informed Dr. Stephens that we were unable to get the patients oxygen saturation up and that the patient is now on vapotherm 20L at 100% and her inhalers have been changed to q4.
[2019-10-13] VITALS (14 sets, daily range): BP systolic 91–123; BP diastolic 63–86
[2019-10-13] MEDS: RT-ALBUTEROL INHALER HFA (VENTOLIN HFA) 18 GM IH SCH ×6 (02:46→22:14)
--- NOTE | 2019-10-13 02:55 | NUR ---
Patient refused aerobika but did easy pap. States that she is tired.
[2019-10-13 06:14] LABS: BASOPHILS % (AUTO) 0 % (0-10); EOSINOPHILS % (AUTO) 0 % (0-10); HEMATOCRIT 38 % (35-52); HEMOGLOBIN 12.7 G/DL (11.5-16.0); LYMPHOCYTES # (AUTO) 1.3 X 10^3 (1.0-4.0); LYMPHOCYTES % (AUTO) 19 % (12-44); MEAN CORPUSCULAR HEMOGLOBIN 31 PG (25-34); MEAN CORPUSCULAR HGB CONC 33 G/DL (32-36); MEAN CORPUSCULAR VOLUME 93 FL (80-99); MEAN PLATELET VOLUME 10.2 FL (7.4-10.4); MONOCYTES # (AUTO) 0.7 X 10^3 (0.0-1.0); MONOCYTES % (AUTO) 11 % (0-12); NEUTROPHILS # (AUTO) 4.7 X 10^3 (1.8-7.8); NEUTROPHILS % (AUTO) 70 % (42-75); PLATELET COUNT 312 10^3/uL (130-400); RED CELL DISTRIBUTION WIDTH 12.7 % (10.0-14.5); WHITE BLOOD COUNT 6.7 10^3/uL (4.3-11.0)
[2019-10-13 06:33] LABS: ALANINE AMINOTRANSFERASE 49 U/L (0-55); ALBUMIN 3.4 GM/DL (3.2-4.5); ALKALINE PHOSPHATASE 60 U/L (40-136); BILIRUBIN,TOTAL 0.3 MG/DL (0.1-1.0); BUN/CREATININE RATIO 25; CALCIUM 8.6 MG/DL (8.5-10.1); CARBON DIOXIDE 22 MMOL/L (21-32); CHLORIDE 102 MMOL/L (98-107); GFR ESTIMATED > 60; GLUCOSE 100 MG/DL (70-105); POTASSIUM 3.5 MMOL/L (3.6-5.0); SODIUM 137 MMOL/L (135-145); TOTAL PROTEIN 6.6 GM/DL (6.4-8.2)
[2019-10-13] MEDS: POTASSIUM CL 10MEQ/50ML IVPB 50 ML IV SCH (06:45)
[2019-10-13] MEDS: inSUlin ASPART (NovoLOG) 1 UNIT/0.01 ML (CHARGE PER UNIT) SC SCH ×4 (06:45→21:09)
[2019-10-13] MEDS: MAGNESIUM 1 GM/100 ML IVPB 100 ML IV SCH (07:09)
[2019-10-13] MEDS: KCL 20 MEQ TAB (K-DUR) PO SCH (07:09)
[2019-10-13] MEDS: ADVAIR HFA 115/21 MCG INHALER 8 GM IH SCH ×2 (07:27→18:59)
[2019-10-13] MEDS: REMDESIVIR INJ (NON-FORMULARY) 100 MG in NS (IVPB) 230 ML IV SCH (09:12)
[2019-10-13] MEDS: dexAMETHasone 6 MG TAB (DECADRON) PO SCH (09:12)
[2019-10-13] MEDS: ASPIRIN E.C. 81 MG (ECOTRIN) TAB PO SCH (09:12)
[2019-10-13] MEDS: SENNOSIDES 8.6 MG (SENOKOT) TAB PO SCH ×2 (09:12→20:59)
[2019-10-13] MEDS: DOCUSATE SODIUM 100 MG (COLACE) CAP PO SCH ×2 (09:12→20:59)
[2019-10-13] MEDS: ONDANSETRON 4 MG/2 ML (SDV) Z0FRAN IV PRN (09:12)
[2019-10-13] MEDS: FLUTICASONE NASAL SPRAY (FLONASE) 16 GM BTL NS SCH (09:16)
--- NOTE | 2019-10-13 12:18 | Progress Note - Hospitalist ---
Subjective HPI/CC On Admission Date Seen by Provider: Oct 13, 2019 Time Seen by Provider: 12:12 Corrine Cortez is a 63 year old female with PMH asthma who presented with malaise. She was evaluated for COVID at [facility] on 10/04 and tested positive. She reports having body aches. She reports nausea and vomiting. She has had diarrhea. She reports headaches. She is not having any significant shortness of breath or cough. She denies any change in taste or smell. She denies any fevers or chills. She denies chest pain. Subjective/Events-last exam Pt reports not feeling well. She states "I'm going to aren't I?" I discussed that her oxygen requirement is going up despite all the aggressive measures taken so far. I informed her that she may need to transfer up to the ICU. At first she said she wouldn't and that if she went to the ICU she knew she would end up on a ventilator and . Informed her that I hope she does not end up needing a ventilator but transferring to the ICU for close monitoring would be in her best interest. She was then agreeable. Objective Exam Vital Signs Vital Signs Date Time Temp Pulse Resp B/P (MAP) Pulse Ox O2 Delivery O2 Flow Rate FiO2 10/13/19 11:52 36.9 89 20 106/68 (81) 91 Vapotherm 30.00 100.00 10/13/19 11:39 100 Capillary Refill : Less Than 3 Seconds General Appearance: Anxious, Obese Respiratory: Decreased Breath Sounds; No Wheezing Cardiovascular: Regular Rate, Rhythm, No Murmur Gastrointestinal: Normal Bowel Sounds, Non Tender, Soft Neurologic/Psychiatric: Alert, Oriented x3 Results/Procedures Lab Laboratory Tests 10/13/19 05:25 Patient resulted labs reviewed. Imaging: Reviewed Imaging Report Assessment/Plan Assessment and Plan Assess & Plan/Chief Complaint COVID-19 Acute respiratory failure with hypoxia- worsening Elevated LFTs Steroid induced hyperglycemia Asthma -COVID PCR positive 10/04 at [facility] -continue supplemental oxygen, requirements increasing- will transfer to the ICU - Discussed with Dr Wade and TeleICU regarding transfer to ICU- Dr Wade to assume rounding tomorrow -CXR ordered -continue Decadron -continue Remdesivir - Will attempt to get convalescent plasma- discussed with patient that this is experimental and there is risk of transfusion reaction, patient agreeable if we are able to get it - Discussed with lab and will start process to request from [place] -LFTs stable, nearly normalized -monitor CMP daily -Sliding scale insulin -Continue home inhalers -MAT protocol Anxiety -Xanax as needed Obesity -Clinically significant, no acute management needs 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
--- NOTE | 2019-10-13 12:41 | NUR ---
PT ARRIVED VIA W/C AND NRB FROM 4TH FLOOR WITH RT AND 4TH FLOOR RN. PT AMBULATED TO BED WITH SBA. PT DOES NOT APPEAR IN RESPIRATORY DISTRESS. STATES HER BREATHING FEELS "OK". BSM APPLIED WITH OXYGEN SAT 89% ON THE NRB AT 15L. RT APPLIES VAPOTHERM AT 40L 100%. SATS NOW 96%. PT STATES THAT "I'M GOING TO END UP ON THE VENTILATOR". THIS RN AND HOWIE RN ATTEMPTS TO CALM NERVES AND TELLS THE PATIENT THAT SHE LOOKS GOOD. VITALS ARE ALL STABLE. BESIDE REPORT GIVEN FROM FOURTH FLOOR RN. THIS RN SPOKE WITH PATIENT ABOUT PRONE POSITIONING, PT HAS BEEN REFUSING TO LAY THIS WAY. SHE STATES THAT IT IS JUST TOO UNCOMFORTABLE TO HER. THIS RN SPOKE TO THE PATIENT ABOUT IMPORTANCE OF THIS PRONE POSITION WITH COVID POSITIVE PATIENTS. SHE STATES THAT SHE WILL TRY IT AFTER SHE EATS. PT EATS AND THIS RN HELPS PATIENT TO A SEMI PRONE, MOSTLY ONTO HER LEFT SIDE POSITION. ADVISED PATIENT SHE CAN PUT HANDS AND LEGS IN ANY POSITION THAT IS COMFORTABLE. PT STATES SHE IS COMFORTABLE, DENIES THE NEED TO MOVE BED TO WATCH TV. THIS RN IN ROOM FOR APPROX 35 MINUTES. 1330: DR STUBBS AND DR MANNING AWARE OF PATIENT ARRIVAL AND CURRENT CONDITION. NO NEW ORDERS. THIS RN SPOKE WITH PATIENTS MOTHER AFTER PASSWORD VERIFIED, UPDATED ON PATIENT CONDITION AND ALL QUESTIONS ANSWERED. 1400: SPOKE WITH E-ICU PROVIDER WITH NO NEW ORDERS AT THIS TIME. PT HAS PUSHED CALL LIGHT STATING SHE DIDN'T KNOW IF SHE COULD STAY ON HER ABDOMEN/SIDE MUCH LONGER. ENCOURAGED PATIENT TO STAY THIS WAY LONG SHE COULD WITH A GOAL OF TURING ON BACK AT 1900.
--- NOTE | 2019-10-13 12:45 | NUR ---
PATIENT TRANSPORTED TO ICU 2 USING COVID PRECAUTIONS. WITH THIS RN, Roberto DENNEY AND LINDA RODRIGUEZ. BEDSIDE REPORT GIVEN TO DIET THERAPISTLINDA SILVERMAN.
--- NOTE | 2019-10-13 14:11 | NUR ---
"RD ASSESSMENT PMHx: hypercholesterolemia; COVID-19 PT INTERACTION: Note pt is COVID positive, per chart review. Note all diet information is gathered per chart review. Note avg PO intake 50% x2d. Note last BM was 10/11, and pt currently on bowel regimen of colace BID; and senna BID. Note unable to determine recent wt hx. ABNORMAL NUTRITION-RELATED LAB VALUES LOW: K 3.5; HIGH: AST 43 Est. kcal needs: 1200 kcal | 15 kcal/kg Est. Pro needs: 64 g Pro | 0.8 g Pro/kg PES STATEMENT: Inadequate oral intake (NI-2.1) related to loss of appetite as evidenced by chart review | avg PO intake 50% x2d INTERVENTION: Continue with current diet order of Regular diet. Pt may benefit from nutrition supplementation if PO intake declines. Would encourage pt to eat when able. Will continue to follow and reassess as pt needs, intake, and status change. MONITOR/EVALUATE: PO Intake; Plan of Care; Hydration Status; Weight Status; Lab Values Jacque Ann, MS, RD, LD"
--- NOTE | 2019-10-13 14:39 | NUR ---
RADIOLOGY IN ROOM FOR CXR. PT MOVED SELF TO SUPINE. SATS DROPPED TO LOWEST OF 83% AT 40L 80% ON VAPOTHERM. VAPOTHERM CHANGED TO 40L 100% WITH SATS OF 91% AFTER. PT STILL IN SUPINE POSITION. ATTEMPTING TO REPRONE IF PATIENT WILL ALLOW.
[2019-10-13] MEDS ORDERED: ALPRAZolam 0.5 MG (XANAX) TAB PO PRN (15:00)
[2019-10-13] MEDS ORDERED: FUROSEMIDE 40 MG/4 ML INJ (LASIX) IVP NR (15:00)
--- NOTE | 2019-10-13 15:15 | Diagnostic Imaging Report ---
INDICATION: Increasing oxygen requirements. COVID positive.. TECHNIQUE: Single view chest 2:41 PM. CORRELATION STUDY: 10/09/2019 FINDINGS: Heart size and mediastinum, stable. Vasculature is borderline. Scattered bilateral pulmonary opacities particularly at the mid and lower lung hoff overall appear slightly increased from prior. Small effusions would be difficult to exclude. IMPRESSION: 1. Scattered bilateral pulmonary parenchymal opacities have adversely changed from prior. May reflect multifocal pneumonia versus edema. This does include the history of COVID. Dictated by: Dictated on workstation # [id number]
[2019-10-13] MEDS: ALPRAZolam 0.5 MG (XANAX) TAB PO PRN (15:44)
--- NOTE | 2019-10-13 17:20 | NUR ---
TIMELINE NOTE: 1720: RECEIVED A PHONE CALL FROM PATIENTS MOTHER, PASSWORD WAS VERIFIED. MOTHER STATES TO THIS RN THAT PATIENT EXPRESSED TO HER THAT SHE WANTED TRANSFERRED TO [place] BECAUSE HER "DOCTORS WHERE THERE". I ADVISED PATIENTS MOTHER THAT I WOULD SPEAK WITH PATIENT WHEN I WENT INTO ROOM NEXT BECAUSE SHE HAD NOT EXPRESSED THIS TO ME. 1725: THIS RN SPOKE WITH PATIENT. SHE STATED THAT HER FAMILY WANTED TRANSPORTED TO [place]. SHE STATED SHE DIDN'T KNOW WHAT DOCTORS WHEN I TOLD HER THAT HER MOTHER STATED IT WAS TO BE WITH HER DOCTORS. PATIENT STATED SHE DIDN'T KNOW WHAT SHE WANTED TO DO AND DIDN'T WANT TO MAKE THAT DECISION. THIS RN AND PATIENT FACETIMED WITH MOTHER. PT AND MOTHER SPOKE ABOUT TRANSFER AND IT WAS GREED UPON BY THEM THAT THEY WANTED HER TRANSFERRED. PT WAS AGREEABLE TO TRANSPORT AT THIS TIME. THIS RN SAT WITH PATIENT WHILE SHE ATE. SATS WERE 85-87% WHEN SITTING SUPINE ATTEMPTING TO EAT AND TALK ON THE PHONE. FSBS COMPLETED. PT TO LEFT SIDE UPON END OF CARE WITH SATS 93%. 1745: SPOKE WITH DR STUBBS REGARDING TRANSFER REQUEST. REQUESTED THIS RN CALL E-ICU TO FACILITATE TRANSFER. THIS RN CALLED EICU AND WAS TOLD PRIMARY DOCTOR MUST CALL FOR INITIAL ACCEPTANCE BUT THEY WILL CALL IF SOMEONE WANTS TO TALK WITH SOMEONE WHILE THEY CAMERA IN ROOM. IN THIS TIME, THE PATIENTS MOTHER CALLED BACK AND STATED THEY NOW WANTED TO GO TO . I ADVISED MOTHER THAT ONCE WE START THE TRANSFER REQUEST, IT IS DIFFICULT TO CANCEL. SHE VOICED UNDERSTANDING AND AGAIN STATED THAT THEY (HERSELF AND PATIENT) HAD TALKED AND SHE WANTS TO GO TO . I NOTIFIED DR STUBBS OF ABOVE AND SHE WILL ATTEMPT TO GET ACCEPTING PROVIDER FOR TRANSFER TO . 1800: DR STUBBS NOTIFIED THIS RN THAT [facility] WILL NOT PROCESS TRANSFER UNTIL AM. NOTIFIED MOTHER AND SHE IS AGREEABLE TO THIS. MOTHER THEN STATED THAT "HER BOSS IS PAYING FOR THIS". SHE ASKED ABOUT AIR TRANSPORTATION AND STATED THAT SHE WAS ASKING "HER BOSS" IF HE WOULD PAY FOR THAT. I TOLD HER IT WAS UP TO PROVIDERS TO DETERMINE WHAT MODE OF TRANSPORTATION SHE WOULD NEED IF SHE WAS ACCEPTED TO TOMORROW. SHE WAS AGREEABLE TO THIS.
[2019-10-13] MEDS: ENOXAPARIN 40 MG/0.4 ML (LOVENOX) SYR SC SCH (17:53)
[2019-10-13] MEDS: MONTELUKAST 10 MG (SINGULAIR) TAB PO SCH (20:59)
[2019-10-13] MEDS: MELATONIN 3 MG TABLET PO PRN (21:08)
[2019-10-14] VITALS (26 sets, daily range): BP systolic 86–134; BP diastolic 45–94
[2019-10-14] MEDS: ALPRAZolam 0.5 MG (XANAX) TAB PO PRN ×2 (02:20→16:39)
[2019-10-14] MEDS: RT-ALBUTEROL INHALER HFA (VENTOLIN HFA) 18 GM IH SCH ×6 (02:26→21:15)
[2019-10-14 02:41] LABS: BASOPHILS % (AUTO) 0 % (0-10); EOSINOPHILS % (AUTO) 0 % (0-10); HEMATOCRIT 42 % (35-52); HEMOGLOBIN 14.2 G/DL (11.5-16.0); LYMPHOCYTES # (AUTO) 1.1 X 10^3 (1.0-4.0); LYMPHOCYTES % (AUTO) 14 % (12-44); MEAN CORPUSCULAR HEMOGLOBIN 31 PG (25-34); MEAN CORPUSCULAR HGB CONC 34 G/DL (32-36); MEAN CORPUSCULAR VOLUME 92 FL (80-99); MEAN PLATELET VOLUME 9.2 FL (7.4-10.4); MONOCYTES # (AUTO) 0.6 X 10^3 (0.0-1.0); MONOCYTES % (AUTO) 8 % (0-12); NEUTROPHILS # (AUTO) 5.6 X 10^3 (1.8-7.8); NEUTROPHILS % (AUTO) 77 % (42-75); PLATELET COUNT 426 10^3/uL (130-400); RED CELL DISTRIBUTION WIDTH 12.9 % (10.0-14.5); WHITE BLOOD COUNT 7.3 10^3/uL (4.3-11.0)
[2019-10-14 03:02] LABS: ALANINE AMINOTRANSFERASE 57 U/L (0-55); ALBUMIN 3.7 GM/DL (3.2-4.5); ALKALINE PHOSPHATASE 70 U/L (40-136); BILIRUBIN,TOTAL 0.6 MG/DL (0.1-1.0); BUN/CREATININE RATIO 19; CALCIUM 9.3 MG/DL (8.5-10.1); CARBON DIOXIDE 27 MMOL/L (21-32); CHLORIDE 95 MMOL/L (98-107); CREATININE SERUM 0.69 MG/DL (0.60-1.30); GFR ESTIMATED > 60; GLUCOSE 112 MG/DL (70-105); POTASSIUM 3.5 MMOL/L (3.6-5.0); SODIUM 137 MMOL/L (135-145); TOTAL PROTEIN 7.3 GM/DL (6.4-8.2)
[2019-10-14 03:19] LABS: ERYTHROCYTE SEDIMENTATION RATE 29 MM/HR (0-30)
[2019-10-14 04:23] LABS: MAGNESIUM 1.8 MG/DL (1.6-2.4); PHOSPHORUS 4.5 MG/DL (2.3-4.7)
[2019-10-14] MEDS ORDERED: KCL 20 MEQ TAB (K-DUR) PO ONE ×2 (05:00→09:00)
[2019-10-14] MEDS ORDERED: FUROSEMIDE 40 MG/4 ML INJ (LASIX) IVP ONE (05:00)
--- NOTE | 2019-10-14 05:00 | Pulmonary Consultation ---
History of Present Illness History of Present Illness Date Seen by Provider: Oct 14, 2019 Time Seen by Provider: 04:54 Date of Admission Allergies and Home Medications Allergies Coded Allergies: Penicillins (Unverified Adverse Reaction, Unknown, 10/09/19) codeine (Unverified Adverse Reaction, Unknown, NAUSEA/VOMITTING, 10/07/19) prednisone (Unverified Adverse Reaction, Unknown, PSYCH, 10/07/19) Uncoded Allergies: PENICILLIN (Adverse Reaction, Unknown, 10/07/19) Home Medications Albuterol Sulfate 18 Gm Hfa.aer.ad, 2 PUFF INH Q6H PRN for SHORTNESS OF BREATH, (Reported) Ascorbic Acid 250 Mg Tab.chew, 250 MG PO DAILY, (Reported) Aspirin 81 Mg Tablet.dr, 81 MG PO DAILY, (Reported) Cetirizine HCl 10 Mg Tablet, 10 MG PO HS, (Reported) Cholecalciferol (Vitamin D3) 25 Mcg Capsule, 25 MCG PO DAILY, (Reported) Cyanocobalamin (Vitamin B-12) 500 Mcg Tab.subl, 500 MCG SL DAILY, (Reported) Doxycycline Hyclate 100 Mg Capsule, 100 MG PO BID, (Reported) FILLED 10-05-2019 #28/14DS Fluticasone Propionate 16 Gm [place].susp, 2 SPRAYS NSEACH DAILY, (Reported) Fluticasone/Vilanterol 1 Each Blst.w.dev, 1 PUFF IN DAILY PRN for SHORTNESS OF BREATH, (Reported) Montelukast Sodium 10 Mg Tablet, 10 MG PO DAILY, (Reported) Ondansetron 4 Mg Tab.rapdis, 4 MG PO Q6H PRN for NAUSEA/VOMITING-1ST LINE, (Reported) Past Ptnqyux-Crljyq-Jrqlja Hx Past Med/Social Hx: Reviewed Nursing Past Med/Soc Hx Patient Social History Alcohol Use: Occasionally Uses Alcohol Beverage of Choice: Vodka Recreational Drug Use: No Smoking Status: Former Smoker Type Used: Cigarettes 2nd Hand Smoke Exposure: No Recent Foreign Travel: No Contact w/Someone Who Travel: No Recent Infectious Disease Expo: No Immunizations Up To Date Date of Pneumonia Vaccine: Oct 08, 2017 Date of Influenza Vaccine: Jan 19, 2014 Past Medical History Surgeries: Yes ([facility]A, breast implants) Breast, Hysterectomy, Oophorectomy Respiratory: No Cardiac: Yes High Cholesterol 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 oz. 63.573961vn; 30.33 BMI Method:Stated Exam Exam Vital Signs Date Time Temp Pulse Resp B/P (MAP) Pulse Ox O2 Delivery O2 Flow Rate FiO2 10/14/19 04:00 98 Vapotherm 40.00 100 10/14/19 02:28 85 Vapotherm 40.00 100 10/14/19 02:26 100 10 109/61 (77) 92 Vapotherm 40.00 100.00 10/14/19 01:00 87 20 123/54 (77) 91 Vapotherm 40.00 100.00 10/14/19 01:00 87 10/14/19 00:00 98 12 134/78 (96) 96 Vapotherm 40.00 100.00 10/14/19 00:00 94 Vapotherm 40.00 100 10/14/19 00:00 36.8 10/13/19 23:00 84 21 123/76 (92) 96 Vapotherm 40.00 100.00 10/13/19 22:14 98 Vapotherm 40.00 100 10/13/19 22:00 76 16 102/64 (77) 98 Vapotherm 40.00 100.00 10/13/19 21:00 100 29 114/73 (87) Vapotherm 40.00 100.00 10/13/19 20:00 36.6 10/13/19 20:00 93 Vapotherm 40.00 100 10/13/19 20:00 94 102/69 (80) 94 Vapotherm 40.00 100.00 10/13/19 19:00 91 10/13/19 19:00 91 26 107/86 (93) 95 Vapotherm 40.00 100.00 10/13/19 18:59 95 Vapotherm 40.00 100 10/13/19 18:00 92 49 93/79 (84) 89 Vapotherm 40.00 90.00 10/13/19 17:56 36.6 10/13/19 17:00 85 18 103/63 (76) 97 Vapotherm 40.00 90.00 10/13/19 16:30 91 Vapotherm 40.00 100 10/13/19 16:00 84 19 120/71 (87) 91 Vapotherm 40.00 90.00 10/13/19 15:16 92 Vapotherm 40.00 100 10/13/19 15:00 88 20 116/66 (83) 93 Vapotherm 40.00 90.00 10/13/19 14:49 Vapotherm 40.00 100.00 10/13/19 14:27 Vapotherm 40.00 90.00 10/13/19 14:00 89 13 91/70 (77) 89 Vapotherm 40.00 90.00 10/13/19 13:11 86 10/13/19 13:00 93 21 115/66 (82) 97 Vapotherm 40.00 100.00 10/13/19 12:59 36.4 10/13/19 12:41 96 Vapotherm 40.00 100 10/13/19 11:52 36.9 89 20 106/68 (81) 91 Vapotherm 30.00 100.00 10/13/19 11:39 91 Vapotherm 30.00 100 10/13/19 08:00 36.9 85 20 98/65 (76) 91 Vapotherm 30.00 100.00 10/13/19 08:00 91 Vapotherm 30.00 100 10/13/19 07:27 91 Vapotherm 30.00 100 I & O 10/14/19 07:00 Intake Total 300 ml Output Total 2250 ml Balance -1950 ml Height & Weight Height: 5'4" Weight: 140lbs. oz. 63.705348xr; 30.33 BMI Method:Stated General Appearance: Anxious, Obese HEENT: PERRL/EOMI, Pharynx Normal Neck: Normal Inspection, Supple Respiratory: Decreased Breath Sounds; No Wheezing Cardiovascular: Regular Rate, Rhythm, No Murmur Capillary Refill: Less Than 3 Seconds Extremity: Normal Inspection, Non Tender, No Pedal Edema Neurologic/Psychiatric: Alert, Oriented x3 Skin: Normal Color, Warm/Dry Results Lab Laboratory Tests 10/12/19 05:35 10/13/19 05:25 10/14/19 02:18 Assessment/Plan Assessment/Plan COVID pneumonia with severe hypoxemia -Currently requiring Vapotherm -PT wants to transfer to -Will give 60mg of Lasix x 1 and check BNP -Continue Remdesivir -Change Decadron to IV and increase to 20mg daily for now -Give convalescent plasma- discussed with patient that this is experimental and there is risk of transfusion reaction, patient agreeable if we are able to get it. 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
[2019-10-14] MEDS: MAGNESIUM 1 GM/100 ML IVPB 100 ML IV SCH (05:18)
[2019-10-14] MEDS: POTASSIUM CL 10MEQ/50ML IVPB 50 ML IV SCH (05:18)
[2019-10-14] MEDS: KCL 20 MEQ TAB (K-DUR) PO SCH (05:19)
[2019-10-14] MEDS: inSUlin ASPART (NovoLOG) 1 UNIT/0.01 ML (CHARGE PER UNIT) SC SCH ×4 (05:19→20:55)
--- NOTE | 2019-10-14 07:00 | NUR ---
TIMELINE NOTE: 0750: PTS MOTHER CALL THIS RN AND PASSWORD VERIFIED. ADVISED HER PATIENT WAS STABLE THIS AM AND WOULD CALL BACK I WAS IN ANOTHER PATIENT ROOM. 0815: SPOKE WITH ONE CALL AT , VERIFIED THAT ALL INFORMATION NEEDED WAS PROVIDED TO [facility]. SPOKE WITH MARIO ALBERTO, SHE STATES THE FINANCIAL INFORMATION WAS STILL BEING RAN BUT THEY HAD ALL INFORMATION THAT THEY NEEDED. DR MANNING'S INFORMATION GIVEN TO ONE CALL FOR PROVIDER TO PROVIDER CONTACT. 0822: NOTIFIED BY DR MANNING THAT IS NOT ACCEPTING PATIENT. THIS RN CALLED PATIENTS MOTHER AND UPDATED ON CONDITION. UPDATED HER OF REFUSAL OF TRANSFER BY . SHE WAS ACCEPTING OF THIS. 0900: THIS RN IN ROOM WITH PATIENT, SHE STATES SHE IS TIRED BUT HAS NO OTHER COMPLAINTS. SHE REFUSES BREAKFAST BUT SITS SUPINE WHILE THIS RN IN ROOM. SATS REMAIN 88-90 WHILE SUPINE. ADVISED PATIENT THAT REFUSED TRANSPORT. SHE IS ACCEPTING OF THIS. WHILE THIS RN WAS IN ROOM, PATIENT MOTHER CALLED THE PATIENT ON HER PERSONAL PHONE AND SHE TOLD THE PATIENT " DON'T WORRY ABOUT IT, BILL IS WORKING ON IT". PT ASSISTED TO RIGHT SIDE SHE IS REFUSING TO GO FULL PRONE. SATS 96-98% WHILE ON RIGHT SIDE. CALL LIGHT WITHIN REACH. ALL NEEDS ADDRESSED.
[2019-10-14] MEDS: ADVAIR HFA 115/21 MCG INHALER 8 GM IH SCH ×2 (07:18→21:15)
[2019-10-14] MEDS: UMECLIDINIUM BROMIDE (INCRUSE ELLIPTA) 7'S IH SCH (07:18)
[2019-10-14] MEDS ORDERED: TIOTROPIUM BROMIDE (SPIRIVA) 5'S INHALER IH SCH (08:00)
[2019-10-14] MEDS: REMDESIVIR INJ (NON-FORMULARY) 100 MG in NS (IVPB) 230 ML IV SCH (09:02)
[2019-10-14] MEDS: ASPIRIN E.C. 81 MG (ECOTRIN) TAB PO SCH (09:03)
[2019-10-14] MEDS: SENNOSIDES 8.6 MG (SENOKOT) TAB PO SCH ×2 (09:03→20:56)
[2019-10-14] MEDS: DOCUSATE SODIUM 100 MG (COLACE) CAP PO SCH ×2 (09:05→20:55)
[2019-10-14] MEDS: ONDANSETRON 4 MG/2 ML (SDV) Z0FRAN IV PRN (09:20)
--- NOTE | 2019-10-14 10:05 | Progress Note - Hospitalist ---
Subjective HPI/CC On Admission Date Seen by Provider: Oct 14, 2019 Time Seen by Provider: 09:57 Corrine Cortez is a 63 year old female with PMH asthma who presented with malaise. She was evaluated for COVID at [facility] on 10/04 and tested positive. She reports having body aches. She reports nausea and vomiting. She has had diarrhea. She reports headaches. She is not having any significant shortness of breath or cough. She denies any change in taste or smell. She denies any fevers or chills. She denies chest pain. Subjective/Events-last exam Pt reports feeling ok today. Breathing is sometimes better. Resting comfortably at the moment though. Objective Exam Vital Signs Vital Signs Date Time Temp Pulse Resp B/P (MAP) Pulse Ox O2 Delivery O2 Flow Rate FiO2 10/14/19 09:00 112 25 114/66 (82) 97 Vapotherm 40.00 100.00 10/14/19 07:17 100 10/14/19 00:00 36.8 Capillary Refill : Less Than 3 Seconds General Appearance: Other (ill appearing) Respiratory: No Respiratory Distress, Decreased Breath Sounds Cardiovascular: Regular Rate, Rhythm, No Murmur Extremity: Pedal Edema, Other (bilateral uper extremity edema) Neurologic/Psychiatric: Alert, Oriented x3 Results/Procedures Lab Laboratory Tests 10/14/19 02:18 Patient resulted labs reviewed. Imaging: Reviewed Imaging Report Assessment/Plan Assessment and Plan Assess & Plan/Chief Complaint COVID-19 Acute respiratory failure with hypoxia- worsening Elevated LFTs Steroid induced hyperglycemia Asthma -COVID PCR positive 10/04 at [facility] -continue supplemental oxygen, requirements increasing- will transfer to the ICU - Discussed with Dr Wade and TeleICU regarding transfer to ICU- Dr Wade to assume rounding tomorrow -CXR ordered -continue Decadron -continue Remdesivir - Will attempt to get convalescent plasma- discussed with patient that this is experimental and there is risk of transfusion reaction, patient agreeable if we are able to get it - Discussed with lab and will start process to request from [place] -LFTs stable, nearly normalized -monitor CMP daily -Sliding scale insulin -Continue home inhalers -MAT protocol Anxiety -Xanax as needed Obesity -Clinically significant, no acute management needs History of VTE -Not on chronic anticoagulation DVT Prophylaxis: Lovenox Diagnosis/Problems Diagnosis/Problems (1) Acute respiratory failure due to COVID-19 Status: Acute (2) COVID-19 Status: Acute (3) Elevated LFTs Status: Acute Clinical Quality Measures DVT/VTE Risk/Contraindication: Risk Factor Score Per Nursin RFS Level Per Nursing on Admit: 4+=Very High MARY KAY STUBBS MD Oct 14, 2019 10:05
[2019-10-14] MEDS: FLUTICASONE NASAL SPRAY (FLONASE) 16 GM BTL NS SCH (13:25)
--- NOTE | 2019-10-14 14:15 | NUR ---
SPOKE WITH PATIENTS MOTHER AFTER PASSWORD VERIFIED. UPDATED ON CONDITION AND ALL QUESTIONS ANSWERED.
[2019-10-14] MEDS: ENOXAPARIN 40 MG/0.4 ML (LOVENOX) SYR SC SCH (17:18)
[2019-10-14] MEDS ORDERED: NS IV 500 ML 500 ML ONE (17:43)
--- NOTE | 2019-10-14 18:17 | NUR ---
THIS RN IN PATIENT ROOM. PATIENT SIGNED CONSENT FOR CONVALESCENT PLASMA. PATIENT INFORMATION PACKET READ WITH HER. SHE STATES SHE WANTS TO THANK EVERYONE BECAUSE THIS WILL MAKE HER FEEL BETTER. PT CONTINUES TO SIT UP IN THE CHAIR WITH SATS 92-93% ON VAPOTHERM. PT UPDATES HER MOTHER VIA TELEPHONE. VITALS STABLE AT THIS TIME. WHEN ATTEMPTING TO SCAN INTO COMPUTER, PRODUCT NUMBER IS NOT RECOGNIZED. THIS RN CALLED [facility] IN BLOOD BANK AND REVERIFIED INFORMATION. ADVISED TO OVERRIDE AND START TRANSFUSION. TRANSFUSION TO PATIENT AT 1815. THIS RN TO STAY IN ROOM DURING TRANSFUSION.
--- NOTE | 2019-10-14 19:00 | NUR ---
PT MOTHER CALLED THIS RN. AFTER VERIFYING PASSWORD, MOTHER UPDATED ON PATIENT CONDITION AND ADMINISTRATION OF PLASMA. MOTHER AGAIN ASKED ABOUT TRANSFER TO . SHE ASKED IF WE HAD CALLED THE TRANSFER LINE. I TOLD HER WE DID. SHE ASKED WHO HAD DENIED HER TRANSFER. MOTHER STATED THAT SHE THOUGHT SHE WOULD BE ACCEPTED THIS MORNING. THIS RN REMINDED MOTHER THAT WE DISCUSSED IN DETAIL THAT HAD NOT ACCEPTED THE PATIENT WHEN WE SPOKE AND THAT THE TRANSFER WOULD BE STARTED THE NEXT MORNING. SHE STATED "OH, I MUST HAVE MISUNDERSTOOD." I TOLD THE PATIENTS MOTHER THAT DR MANNING HAD DISCUSSED HER CASE WITH THE INTENSIVE CARE PROVIDER AT AND WAS DENIED TRANSFER. THIS RN HAD ALSO RELAYED THIS INFORMATION TO THE PATIENTS MOTHER THIS MORNING. SHE VOICED UNDERSTANDING THEN. SHE STATED THAT SHE IS GLAD SHE IS DOING BETTER TODAY. SHE STATED SHE HAD NO FURTHER QUESTIONS.
[2019-10-14] MEDS: MELATONIN 3 MG TABLET PO PRN (20:55)
[2019-10-14] MEDS: MONTELUKAST 10 MG (SINGULAIR) TAB PO SCH (20:55)
[2019-10-15] VITALS (26 sets, daily range): BP systolic 90–126; BP diastolic 50–93
[2019-10-15] MEDS: RT-ALBUTEROL INHALER HFA (VENTOLIN HFA) 18 GM IH SCH ×5 (02:10→22:39)
[2019-10-15 04:04] LABS: BASOPHILS % (AUTO) 0 % (0-10); EOSINOPHILS % (AUTO) 0 % (0-10); HEMATOCRIT 39 % (35-52); HEMOGLOBIN 13.3 G/DL (11.5-16.0); LYMPHOCYTES # (AUTO) 0.8 X 10^3 (1.0-4.0); LYMPHOCYTES % (AUTO) 11 % (12-44); MEAN CORPUSCULAR HEMOGLOBIN 31 PG (25-34); MEAN CORPUSCULAR HGB CONC 34 G/DL (32-36); MEAN CORPUSCULAR VOLUME 92 FL (80-99); MEAN PLATELET VOLUME 9.2 FL (7.4-10.4); MONOCYTES # (AUTO) 0.8 X 10^3 (0.0-1.0); MONOCYTES % (AUTO) 10 % (0-12); NEUTROPHILS # (AUTO) 5.9 X 10^3 (1.8-7.8); NEUTROPHILS % (AUTO) 79 % (42-75); PLATELET COUNT 447 10^3/uL (130-400); RED CELL DISTRIBUTION WIDTH 12.3 % (10.0-14.5); WHITE BLOOD COUNT 7.5 10^3/uL (4.3-11.0)
[2019-10-15 04:36] LABS: ALANINE AMINOTRANSFERASE 45 U/L (0-55); ALBUMIN 3.6 GM/DL (3.2-4.5); ALKALINE PHOSPHATASE 69 U/L (40-136); BILIRUBIN,TOTAL 0.6 MG/DL (0.1-1.0); BUN/CREATININE RATIO 27; CALCIUM 9.2 MG/DL (8.5-10.1); CARBON DIOXIDE 27 MMOL/L (21-32); CHLORIDE 95 MMOL/L (98-107); CREATININE SERUM 0.63 MG/DL (0.60-1.30); GFR ESTIMATED > 60; GLUCOSE 116 MG/DL (70-105); POTASSIUM 3.6 MMOL/L (3.6-5.0); SODIUM 136 MMOL/L (135-145); TOTAL PROTEIN 7.2 GM/DL (6.4-8.2)
[2019-10-15] MEDS: KCL 20 MEQ TAB (K-DUR) PO SCH (04:43)
[2019-10-15] MEDS: inSUlin ASPART (NovoLOG) 1 UNIT/0.01 ML (CHARGE PER UNIT) SC SCH ×4 (04:43→20:23)
[2019-10-15] MEDS: POTASSIUM CL 10MEQ/50ML IVPB 50 ML IV SCH (04:43)
[2019-10-15 04:58] LABS: PHOSPHORUS 3.8 MG/DL (2.3-4.7)
--- NOTE | 2019-10-15 05:45 | Pulmonary Progress Note ---
Subjective Time Seen by a Provider: 05:39 Subjective/Events-last exam Pt is still requiring high flow vapotherm. Sepsis Event Evaluation Height, Weight, BMI Height: 5'4" Weight: 140lbs. oz. 63.206070rz; 30.33 BMI Method:Stated Exam Exam Vital Signs Date Time Temp Pulse Resp B/P (MAP) Pulse Ox O2 Delivery O2 Flow Rate FiO2 10/15/19 04:05 Vapotherm 40.00 70 10/15/19 04:00 78 20 90/75 (80) 93 Vapotherm 40.00 70.00 10/15/19 03:00 70 16 106/63 (77) 93 Vapotherm 40.00 70.00 10/15/19 02:15 73 96/55 (69) 94 Vapotherm 40.00 70.00 10/15/19 02:12 35.7 Vapotherm 40.00 70.00 10/15/19 02:06 95 40.00 80 10/15/19 02:00 84 18 95/61 (72) 98 Vapotherm 40.00 80.00 10/15/19 01:00 67 10/15/19 01:00 67 20 94/71 (79) 99 Vapotherm 40.00 80.00 10/15/19 00:18 Vapotherm 40.00 80.00 10/15/19 00:15 64 14 100/58 (72) 98 Vapotherm 40.00 90.00 10/14/19 23:38 62 20 109/66 (80) 99 Vapotherm 40.00 90.00 10/14/19 23:32 Vapotherm 40.00 90 10/14/19 23:30 35.6 Vapotherm 40.00 90.00 10/14/19 22:00 75 18 86/47 (60) 96 Vapotherm 40.00 100.00 10/14/19 21:00 76 18 102/75 (84) 91 Vapotherm 40.00 100.00 10/14/19 20:59 36.1 Vapotherm 40.00 100.00 10/14/19 20:51 78 21 109/94 (99) 90 Vapotherm 40.00 100.00 10/14/19 20:30 36.1 78 21 109/94 90 Vapotherm 40.00 100 10/14/19 20:30 91 Vapotherm 40.00 100 10/14/19 19:00 86 16 108/62 (77) 94 Vapotherm 40.00 100.00 10/14/19 19:00 86 10/14/19 18:57 94 40.00 100 10/14/19 18:30 36.2 82 16 96/66 92 Vapotherm 40.00 100 10/14/19 18:15 36.2 90 20 106/60 90 Vapotherm 40.00 100 10/14/19 18:00 90 19 106/60 (75) 94 Vapotherm 40.00 100.00 10/14/19 17:24 36.6 10/14/19 17:21 96 Vapotherm 40.00 100 10/14/19 17:00 85 18 104/71 (82) 91 Vapotherm 40.00 100.00 10/14/19 16:00 78 17 92/54 (67) 98 Vapotherm 40.00 100.00 10/14/19 15:33 96 Vapotherm 40.00 100 10/14/19 15:00 75 17 99/57 (71) 97 Vapotherm 40.00 100.00 10/14/19 14:00 36.5 10/14/19 14:00 84 17 101/45 (63) 94 Vapotherm 40.00 100.00 10/14/19 13:00 93 18 121/90 (100) 98 Vapotherm 40.00 100.00 10/14/19 13:00 99 10/14/19 12:00 87 18 105/59 (74) 98 Vapotherm 40.00 100.00 10/14/19 11:50 96 Vapotherm 40.00 100 10/14/19 11:14 95 Vapotherm 40.00 100 10/14/19 11:00 97 21 109/67 (81) 92 Vapotherm 40.00 100.00 10/14/19 10:00 88 20 98/55 (69) 100 Vapotherm 40.00 100.00 10/14/19 09:50 36.6 10/14/19 09:15 96 Vapotherm 40.00 100 10/14/19 09:00 112 25 114/66 (82) 97 Vapotherm 40.00 100.00 10/14/19 08:00 91 23 98/53 (68) Vapotherm 40.00 100.00 10/14/19 07:23 101 10/14/19 07:17 96 Vapotherm 40.00 100 10/14/19 07:00 92 21 88/47 (61) 98 Vapotherm 40.00 100.00 10/14/19 06:00 97 21 108/62 (77) 96 Vapotherm 40.00 100.00 I & O 10/15/19 07:00 Intake Total 950 ml Output Total 1345 ml Balance -395 ml Height & Weight Height: 5'4" Weight: 140lbs. oz. 63.377694yl; 30.33 BMI Method:Stated General Appearance: Anxious, Obese HEENT: PERRL/EOMI, Pharynx Normal Neck: Normal Inspection, Supple Respiratory: Decreased Breath Sounds; No Wheezing Cardiovascular: Regular Rate, Rhythm, No Murmur Capillary Refill: Less Than 3 Seconds Extremity: Normal Inspection, Non Tender, No Pedal Edema Neurologic/Psychiatric: Alert, Oriented x3 Skin: Normal Color, Warm/Dry Results Lab Laboratory Tests 10/14/19 02:18 10/15/19 03:50 Assessment/Plan Assessment/Plan COVID pneumonia with severe hypoxemia -Check ABG -Currently requiring Vapotherm -PT wants to transfer to -[facility] did not accept transfer. They stated we are doing everything here that they would be doing there. - Remdesivir - Decadron IV 20mg daily - convalescent plasma is ordered - discussed with patient that this is experimental and there is risk of transfusion reaction, patient agreeable if we are able to get it. elevated LFTs -Monitor AsthmaAE -Continue Albuterol and advair Anxiety -Xanax as needed Obesity History of VTE Not on chronic anticoagulation DVT Prophylaxis - Lovenox JEVON MANNING DO Oct 15, 2019 05:45
[2019-10-15] MEDS: MAGNESIUM 1 GM/100 ML IVPB 100 ML IV SCH (06:10)
[2019-10-15] MEDS: ALPRAZolam 0.5 MG (XANAX) TAB PO PRN ×2 (06:11→16:55)
[2019-10-15 06:13] LABS: ABG BASE EXCESS 7.9 MMOL/L (-2.5-2.5); ABG OXYGEN SATURATION 95 % (94-100); ABG PCO2 42 MMHG (35-45); ABG PH 7.49 (7.37-7.43); ABG PO2 63 MMHG (79-93); ABG TCO2 33.1 MMOL/L (21.0-31.0); ALLENS TEST YES-POS; INSPIRED O2 70%; PATIENT TEMP 36.1; VENTILATOR NO
[2019-10-15] MEDS ORDERED: KCL 20 MEQ TAB (K-DUR) PO ONE (08:00)
[2019-10-15] MEDS: SENNOSIDES 8.6 MG (SENOKOT) TAB PO SCH ×2 (09:38→20:26)
[2019-10-15] MEDS: ASPIRIN E.C. 81 MG (ECOTRIN) TAB PO SCH (09:38)
[2019-10-15] MEDS: FLUTICASONE NASAL SPRAY (FLONASE) 16 GM BTL NS SCH (09:39)
[2019-10-15] MEDS: DOCUSATE SODIUM 100 MG (COLACE) CAP PO SCH ×2 (09:39→20:26)
[2019-10-15] MEDS: UMECLIDINIUM BROMIDE (INCRUSE ELLIPTA) 7'S IH SCH (10:19)
[2019-10-15] MEDS: ADVAIR HFA 115/21 MCG INHALER 8 GM IH SCH ×2 (10:19→19:20)
--- NOTE | 2019-10-15 11:46 | NUR ---
THIS RN SPOKE WITH PATIENTS MOTHER AFTER VERIFYING PASSWORD. ANSWERED ALL QUESTIONS AND UPDATED ON PATIENT CONDITION.
--- NOTE | 2019-10-15 12:49 | NUR ---
PT SITTING UP IN BED FOR LUNCH. ASKED IF SHE WANTED TO WALK AROUND THE ROOM AT THIS TIME, SHE STATED SHE WANTED TO AFTER SHE ATE LATER THIS AFTERNOON. PT THEN COMPLAINED OF BACK PAIN 5/10. SHE THINKS IT IS BECAUSE OF THE BED. ASSISTED THE PATIENT TO THE CHAIR FOR LUNCH. SHE TOLERATED THIS WELL, WITH SATS DROPPING TO 88% BUT RISING TO 90% AFTER APPROX ONE MINUTES REST. PLAN IS TO WALK AFTER SHE GETS DONE WITH LUNCH. PT WAS OFFERED TYLENOL AND OXYCODONE BUT SHE REFUSED BOTH STATING THAT SHE DOESN'T LIKE TAKING PILLS SO SHE WILL SEE IF THE CHAIR HELPS HER BACK FIRST.
--- NOTE | 2019-10-15 14:06 | NUR ---
"RD ASSESSMENT PMHx: hypercholesterolemia; COVID-19 PT INTERACTION: Note pt is currently COVID-19 positive, per chart review. Note all information is gathered per chart review for nutrition follow-up. Note avg PO intake 25-50% x4d. Note intake has been decreasing over the last 2day, per chart review. Note last BM was 10/11, and pt currently on bowel regimen of colace BID; and senna BID. ABNORMAL NUTRITION-RELATED LAB VALUES LOW: Cl 96; HIGH: glu 116 Est. kcal needs: 1200 kcal | 15 kcal/kg Est. Pro needs: 64 g Pro | 0.8 g Pro/kg PES STATEMENT: Inadequate oral intake (NI-2.1) related to loss of appetite as evidenced by chart review | avg P ointake 25-50% x4d INTERVENTION: Continue with current diet order of Regular diet. Add Ensure Enlive (vary) to meals TID, for increased kcal intake. Provides 350 kcal and 13 g Pro per serving. Will continue to follow and reassess as pt needs, intake, and status change. MONITOR/EVALUATE: PO Intake; Plan of Care; Hydration Status; Weight Status; Lab Values Jacque Ann, MS, RD, LD"
[2019-10-15] MEDS ORDERED: RT-ALBUTEROL INHALER HFA (VENTOLIN HFA) 18 GM IH PRN (16:00)
[2019-10-15] MEDS: ENOXAPARIN 40 MG/0.4 ML (LOVENOX) SYR SC SCH (16:55)
[2019-10-15] MEDS ORDERED: RT-ALBUTEROL INHALER HFA (VENTOLIN HFA) 18 GM IH SCH (18:00)
[2019-10-15] MEDS: MONTELUKAST 10 MG (SINGULAIR) TAB PO SCH (20:22)
[2019-10-15] MEDS: MELATONIN 3 MG TABLET PO PRN (20:22)
[2019-10-16] VITALS (23 sets, daily range): BP systolic 89–137; BP diastolic 53–101
[2019-10-16] MEDS: RT-ALBUTEROL INHALER HFA (VENTOLIN HFA) 18 GM IH SCH ×6 (03:06→22:15)
[2019-10-16 03:38] LABS: BASOPHILS % (AUTO) 0 % (0-10); EOSINOPHILS % (AUTO) 0 % (0-10); HEMATOCRIT 40 % (35-52); HEMOGLOBIN 13.2 G/DL (11.5-16.0); LYMPHOCYTES # (AUTO) 0.8 X 10^3 (1.0-4.0); LYMPHOCYTES % (AUTO) 8 % (12-44); MEAN CORPUSCULAR HEMOGLOBIN 31 PG (25-34); MEAN CORPUSCULAR HGB CONC 33 G/DL (32-36); MEAN CORPUSCULAR VOLUME 92 FL (80-99); MEAN PLATELET VOLUME 9.1 FL (7.4-10.4); MONOCYTES # (AUTO) 0.7 X 10^3 (0.0-1.0); MONOCYTES % (AUTO) 7 % (0-12); NEUTROPHILS # (AUTO) 8.2 X 10^3 (1.8-7.8); NEUTROPHILS % (AUTO) 85 % (42-75); PLATELET COUNT 532 10^3/uL (130-400); RED CELL DISTRIBUTION WIDTH 12.6 % (10.0-14.5); WHITE BLOOD COUNT 9.7 10^3/uL (4.3-11.0)
[2019-10-16 03:58] LABS: CHLORIDE 98 MMOL/L (98-107); SODIUM 135 MMOL/L (135-145)
[2019-10-16 03:59] LABS: CALCIUM 9.1 MG/DL (8.5-10.1); GLUCOSE 116 MG/DL (70-105)
[2019-10-16 04:01] LABS: CARBON DIOXIDE 23 MMOL/L (21-32)
[2019-10-16 04:03] LABS: CREATININE SERUM 0.62 MG/DL (0.60-1.30); GFR ESTIMATED > 60
[2019-10-16 04:04] LABS: BUN/CREATININE RATIO 27
[2019-10-16] MEDS: POTASSIUM CL 10MEQ/50ML IVPB 50 ML IV SCH (04:09)
[2019-10-16] MEDS: MAGNESIUM 1 GM/100 ML IVPB 100 ML IV SCH (04:10)
[2019-10-16] MEDS: KCL 20 MEQ TAB (K-DUR) PO SCH (04:10)
[2019-10-16] MEDS: inSUlin ASPART (NovoLOG) 1 UNIT/0.01 ML (CHARGE PER UNIT) SC SCH ×4 (04:11→20:28)
--- NOTE | 2019-10-16 04:52 | Pulmonary Progress Note ---
Subjective Time Seen by a Provider: 04:47 Subjective/Events-last exam Pt is still requiring high flow oxygen via vapotherm. Sepsis Event Evaluation Height, Weight, BMI Height: 5'4" Weight: 140lbs. oz. 63.270036ha; 30.33 BMI Method:Stated Exam Exam Vital Signs Date Time Temp Pulse Resp B/P (MAP) Pulse Ox O2 Delivery O2 Flow Rate FiO2 10/16/19 04:00 79 20 91 Vapotherm 40.00 65.00 10/16/19 03:06 92 40.00 65 10/16/19 03:00 85 22 115/62 (79) 93 Vapotherm 40.00 65.00 10/16/19 02:00 78 16 99/62 (74) 92 Vapotherm 40.00 65.00 10/16/19 01:13 36.1 Vapotherm 40.00 65.00 10/16/19 01:00 69 16 102/54 (70) 95 Vapotherm 40.00 75.00 10/16/19 01:00 71 10/16/19 00:00 68 15 99/53 (68) 95 Vapotherm 40.00 75.00 10/16/19 00:00 Vapotherm 40.00 75 10/15/19 23:00 75 16 96/54 (68) 95 Vapotherm 40.00 75.00 10/15/19 22:44 Vapotherm 40.00 75.00 10/15/19 22:39 97 40.00 85 10/15/19 22:00 74 17 103/50 (67) 97 Vapotherm 40.00 85.00 10/15/19 21:00 81 16 109/67 (81) 95 Vapotherm 40.00 85.00 10/15/19 20:00 105 20 126/74 (91) 93 Vapotherm 40.00 85.00 10/15/19 20:00 Vapotherm 40.00 85 10/15/19 19:20 93 40.00 85 10/15/19 19:00 92 28 107/81 (90) 92 Vapotherm 40.00 85.00 10/15/19 19:00 90 10/15/19 18:00 100 23 112/60 (77) 91 Vapotherm 40.00 85.00 10/15/19 17:00 92 31 122/93 (103) 89 Vapotherm 40.00 85.00 10/15/19 16:41 Vapotherm 40.00 85 10/15/19 16:00 96 21 114/74 (87) 90 Vapotherm 40.00 85.00 10/15/19 15:49 36.1 89 94 10/15/19 15:28 Vapotherm 40.00 85.00 10/15/19 15:00 89 21 110/72 (85) 98 Vapotherm 35.00 75.00 10/15/19 15:00 94 40.00 85 10/15/19 14:00 83 21 93/65 (74) 93 Vapotherm 40.00 100.00 10/15/19 13:00 93 26 100/72 (81) 90 Vapotherm 40.00 100.00 10/15/19 12:55 92 10/15/19 12:14 36.1 10/15/19 12:12 Vapotherm 40.00 100 10/15/19 12:00 90 17 97/58 (71) 99 Vapotherm 40.00 100.00 10/15/19 11:00 84 17 115/68 (84) 99 Vapotherm 40.00 100.00 10/15/19 10:20 40.00 100 10/15/19 10:19 40.00 100 10/15/19 10:19 40.00 100 10/15/19 10:00 36.7 10/15/19 10:00 86 28 112/74 (87) 91 Vapotherm 40.00 100.00 10/15/19 09:52 Vapotherm 40.00 100 10/15/19 09:50 Vapotherm 40.00 100.00 10/15/19 09:00 85 17 100/64 (76) 91 Vapotherm 40.00 70.00 10/15/19 08:00 85 17 96/60 (72) 93 Vapotherm 40.00 70.00 10/15/19 07:00 75 15 103/73 (83) 96 Vapotherm 40.00 70.00 10/15/19 06:48 76 10/15/19 06:15 87 13 106/61 (76) 93 Vapotherm 40.00 70.00 10/15/19 06:11 40.00 100 10/15/19 06:00 36.1 10/15/19 05:00 86 21 105/61 (36) 94 Vapotherm 40.00 70.00 I & O 10/16/19 07:00 Intake Total 950 ml Output Total 690 ml Balance 260 ml Height & Weight Height: 5'4" Weight: 140lbs. oz. 63.318469vc; 30.33 BMI Method:Stated General Appearance: Anxious, Obese HEENT: PERRL/EOMI, Pharynx Normal Neck: Normal Inspection, Supple Respiratory: Decreased Breath Sounds; No Wheezing Cardiovascular: Regular Rate, Rhythm, No Murmur Capillary Refill: Less Than 3 Seconds Extremity: Normal Inspection, Non Tender, No Pedal Edema Neurologic/Psychiatric: Alert, Oriented x3 Skin: Normal Color, Warm/Dry Results Lab Laboratory Tests 10/15/19 03:50 10/16/19 03:19 Assessment/Plan Assessment/Plan COVID pneumonia with severe hypoxemia -Currently requiring Vapotherm however FI02 requirments are slowly improving - s/p Remdesivir - Decadron IV 20mg daily - s/p convalescent plasma elevated LFTs -Monitor AsthmaAE -Continue Albuterol and advair Anxiety -Xanax as needed Obesity History of VTE Not on chronic anticoagulation DVT Prophylaxis - Lovenox JEVON MANNING DO Oct 16, 2019 04:52
[2019-10-16] MEDS: ALPRAZolam 0.5 MG (XANAX) TAB PO PRN ×3 (05:26→15:48)
[2019-10-16] MEDS: ADVAIR HFA 115/21 MCG INHALER 8 GM IH SCH ×2 (06:41→18:24)
[2019-10-16] MEDS: UMECLIDINIUM BROMIDE (INCRUSE ELLIPTA) 7'S IH SCH (06:41)
[2019-10-16] MEDS: DOCUSATE SODIUM 100 MG (COLACE) CAP PO SCH ×2 (07:46→20:29)
[2019-10-16] MEDS: SENNOSIDES 8.6 MG (SENOKOT) TAB PO SCH ×2 (07:46→20:29)
[2019-10-16] MEDS: risperiDONE 1 MG (RisperDAL) TAB PO SCH ×2 (07:46→20:29)
[2019-10-16] MEDS: ASPIRIN E.C. 81 MG (ECOTRIN) TAB PO SCH (07:46)
[2019-10-16] MEDS: FLUTICASONE NASAL SPRAY (FLONASE) 16 GM BTL NS SCH (07:47)
--- NOTE | 2019-10-16 11:05 | NUR ---
I contacted pts RN and requested they convey [facility] availability via phone if the pt or family had a need.
[2019-10-16] MEDS: MONTELUKAST 10 MG (SINGULAIR) TAB PO SCH (20:28)
[2019-10-16] MEDS: MELATONIN 3 MG TABLET PO PRN (20:29)
[2019-10-16] MEDS: ENOXAPARIN 40 MG/0.4 ML (LOVENOX) SYR SC SCH (20:29)
[2019-10-17] VITALS (23 sets, daily range): BP systolic 81–139; BP diastolic 44–98
[2019-10-17] MEDS: ALPRAZolam 0.5 MG (XANAX) TAB PO PRN ×4 (00:08→23:52)
[2019-10-17] MEDS: RT-ALBUTEROL INHALER HFA (VENTOLIN HFA) 18 GM IH SCH ×6 (01:50→21:22)
[2019-10-17 03:02] LABS: BASOPHILS % (AUTO) 0 % (0-10); EOSINOPHILS % (AUTO) 0 % (0-10); HEMATOCRIT 39 % (35-52); HEMOGLOBIN 13.1 G/DL (11.5-16.0); LYMPHOCYTES # (AUTO) 0.9 X 10^3 (1.0-4.0); LYMPHOCYTES % (AUTO) 9 % (12-44); MEAN CORPUSCULAR HEMOGLOBIN 31 PG (25-34); MEAN CORPUSCULAR HGB CONC 33 G/DL (32-36); MEAN CORPUSCULAR VOLUME 93 FL (80-99); MONOCYTES # (AUTO) 0.5 X 10^3 (0.0-1.0); MONOCYTES % (AUTO) 5 % (0-12); NEUTROPHILS # (AUTO) 8.1 X 10^3 (1.8-7.8); NEUTROPHILS % (AUTO) 86 % (42-75); PLATELET COUNT 476 10^3/uL (130-400); RED CELL DISTRIBUTION WIDTH 12.5 % (10.0-14.5); WHITE BLOOD COUNT 9.5 10^3/uL (4.3-11.0)
[2019-10-17 03:18] LABS: CHLORIDE 101 MMOL/L (98-107); POTASSIUM 4.4 MMOL/L (3.6-5.0); SODIUM 138 MMOL/L (135-145)
[2019-10-17 03:20] LABS: GLUCOSE 118 MG/DL (70-105)
[2019-10-17 03:22] LABS: CARBON DIOXIDE 24 MMOL/L (21-32)
[2019-10-17 03:24] LABS: CREATININE SERUM 0.65 MG/DL (0.60-1.30); GFR ESTIMATED > 60; PHOSPHORUS 4.4 MG/DL (2.3-4.7)
[2019-10-17 03:25] LABS: BUN/CREATININE RATIO 28
[2019-10-17 03:26] LABS: MAGNESIUM 2.1 MG/DL (1.6-2.4)
[2019-10-17] MEDS: POTASSIUM CL 10MEQ/50ML IVPB 50 ML IV SCH (03:56)
[2019-10-17] MEDS: MAGNESIUM 1 GM/100 ML IVPB 100 ML IV SCH (03:56)
[2019-10-17] MEDS: inSUlin ASPART (NovoLOG) 1 UNIT/0.01 ML (CHARGE PER UNIT) SC SCH ×4 (03:57→21:40)
[2019-10-17] MEDS: KCL 20 MEQ TAB (K-DUR) PO SCH (03:57)
[2019-10-17 04:35] LABS: ATYPICAL LYMPHOCYTES 2 %; LYMPHOCYTES % (MANUAL) 8 %; MONOCYTES % (MANUAL) 6 %; NEUTROPHILS % (MANUAL) 84 %; SMUDGE CELLS SLIGHT
--- NOTE | 2019-10-17 05:22 | Pulmonary Progress Note ---
Subjective Time Seen by a Provider: 05:21 Subjective/Events-last exam No complications noted. Sepsis Event Evaluation Height, Weight, BMI Height: 5'4" Weight: 140lbs. oz. 63.339053cv; 30.33 BMI Method:Stated Exam Exam Vital Signs Date Time Temp Pulse Resp B/P (MAP) Pulse Ox O2 Delivery O2 Flow Rate FiO2 10/17/19 04:00 Vapotherm 30.00 40 10/17/19 03:58 36.0 Vapotherm 30.00 40.00 10/17/19 03:00 70 15 109/63 (78) 98 Vapotherm 35.00 50.00 10/17/19 02:00 66 15 85/48 (60) 95 Vapotherm 35.00 50.00 10/17/19 01:50 95 Vapotherm 35.00 50 10/17/19 01:00 75 10/17/19 01:00 74 16 81/44 (56) 94 Vapotherm 35.00 50.00 10/17/19 00:13 Vapotherm 35.00 50.00 10/17/19 00:00 71 15 106/58 (74) 97 Vapotherm 35.00 60.00 10/17/19 00:00 Vapotherm 35.00 60 10/17/19 00:00 36.1 Vapotherm 35.00 60.00 10/16/19 23:00 76 17 89/67 (74) 99 Vapotherm 40.00 70.00 10/16/19 22:15 96 Vapotherm 40.00 70 10/16/19 22:00 83 16 108/67 (81) 96 Vapotherm 40.00 70.00 10/16/19 21:00 81 24 125/74 (91) 97 Vapotherm 40.00 70.00 10/16/19 20:45 35.9 Vapotherm 40.00 70.00 10/16/19 20:00 93 25 114/75 (88) 91 Vapotherm 40.00 75.00 10/16/19 20:00 Vapotherm 40.00 70 10/16/19 19:00 92 10/16/19 19:00 91 24 137/77 (97) 92 Vapotherm 40.00 75.00 10/16/19 18:24 95 Vapotherm 40.00 70 10/16/19 18:00 86 20 120/75 (90) 95 Vapotherm 40.00 75.00 10/16/19 17:00 92 24 113/101 (105) 92 Vapotherm 40.00 75.00 10/16/19 16:00 Vapotherm 40.00 70 10/16/19 16:00 93 31 104/89 (94) 91 Vapotherm 40.00 75.00 10/16/19 15:00 90 39 109/79 (89) 91 Vapotherm 40.00 75.00 10/16/19 14:27 92 Vapotherm 40.00 70 10/16/19 14:00 89 17 108/66 (80) 92 Vapotherm 40.00 75.00 10/16/19 13:11 92 10/16/19 13:00 90 24 118/61 (80) 94 Vapotherm 40.00 75.00 10/16/19 12:00 80 19 105/65 (78) 91 Vapotherm 40.00 75.00 10/16/19 12:00 Vapotherm 40.00 70 10/16/19 11:00 94 26 117/71 (86) 85 Vapotherm 40.00 75.00 10/16/19 10:59 35.9 10/16/19 10:59 Vapotherm 40.00 75.00 10/16/19 10:38 91 Vapotherm 40.00 75 10/16/19 10:00 87 17 121/70 (87) 97 Vapotherm 35.00 75.00 10/16/19 09:00 86 24 119/68 (85) 92 Vapotherm 35.00 75.00 10/16/19 08:00 93 23 117/72 (87) 85 Vapotherm 35.00 75.00 10/16/19 08:00 Vapotherm 35.00 75 10/16/19 07:12 74 10/16/19 07:00 79 19 119/69 (86) 92 Vapotherm 40.00 75.00 10/16/19 07:00 36.3 Vapotherm 35.00 75.00 10/16/19 06:41 98 Vapotherm 35.00 70 10/16/19 06:00 74 19 123/66 (85) 93 Vapotherm 40.00 75.00 10/16/19 05:51 Vapotherm 40.00 75.00 10/16/19 05:34 40.00 70.00 I & O 10/17/19 07:00 Intake Total 700 ml Output Total 625 ml Balance 75 ml Height & Weight Height: 5'4" Weight: 140lbs. oz. [id number]; 30.33 BMI Method:Stated General Appearance: Anxious, Obese HEENT: PERRL/EOMI, Pharynx Normal Neck: Normal Inspection, Supple Respiratory: Decreased Breath Sounds; No Wheezing Cardiovascular: Regular Rate, Rhythm, No Murmur Capillary Refill: Less Than 3 Seconds Extremity: Normal Inspection, Non Tender, No Pedal Edema Neurologic/Psychiatric: Alert, Oriented x3 Skin: Normal Color, Warm/Dry Results Lab Laboratory Tests 10/16/19 03:19 10/17/19 02:51 Assessment/Plan Assessment/Plan COVID pneumonia with severe hypoxemia -Currently requiring Vapotherm however FI02 requirments are slowly improving - s/p Remdesivir - Decadron IV 20mg daily - s/p convalescent plasma elevated LFTs -Monitor AsthmaAE -Continue Albuterol and advair Anxiety -Xanax as needed Obesity 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
[2019-10-17] MEDS: ADVAIR HFA 115/21 MCG INHALER 8 GM IH SCH ×2 (07:13→18:13)
[2019-10-17] MEDS: UMECLIDINIUM BROMIDE (INCRUSE ELLIPTA) 7'S IH SCH (07:13)
[2019-10-17] MEDS: SENNOSIDES 8.6 MG (SENOKOT) TAB PO SCH ×2 (08:01→20:42)
[2019-10-17] MEDS: DOCUSATE SODIUM 100 MG (COLACE) CAP PO SCH ×2 (08:01→20:42)
[2019-10-17] MEDS: ASPIRIN E.C. 81 MG (ECOTRIN) TAB PO SCH (08:01)
[2019-10-17] MEDS: risperiDONE 1 MG (RisperDAL) TAB PO SCH ×2 (08:02→20:42)
[2019-10-17] MEDS: FLUTICASONE NASAL SPRAY (FLONASE) 16 GM BTL NS SCH (08:05)
--- NOTE | 2019-10-17 09:46 | Diagnostic Imaging Report ---
INDICATION: Covid positive, pneumonia. TIME OF EXAM: 9:23 AM Correlation is made with prior chest from 10/13/2019. FINDINGS: Heart size is stable. Patchy airspace infiltrates in both lungs persist. There is an area of parenchymal consolidation mid left lung peripherally which may be increased since prior. Right lung is stable. There is no effusion. There is no pneumothorax. IMPRESSION: Bilateral pulmonary infiltrates consistent with pneumonia. There is some increasing consolidation left mid lung peripherally when compared to examination 4 days earlier. Dictated by: Dictated on workstation # [id number]
--- NOTE | 2019-10-17 14:53 | NUR ---
REPORT GIVEN TO JOYCE MCKEON WHO ASSUMES CARE OF PT. NO QUESTIONS/CONCERNS VOICED.
[2019-10-17] MEDS: ENOXAPARIN 40 MG/0.4 ML (LOVENOX) SYR SC SCH (16:50)
[2019-10-17] MEDS: MONTELUKAST 10 MG (SINGULAIR) TAB PO SCH (20:42)
[2019-10-17] MEDS: MELATONIN 3 MG TABLET PO PRN (20:42)
[2019-10-18] VITALS (10 sets, daily range): BP systolic 92–134; BP diastolic 59–83
[2019-10-18] MEDS: RT-ALBUTEROL INHALER HFA (VENTOLIN HFA) 18 GM IH SCH ×6 (02:04→21:20)
--- NOTE | 2019-10-18 05:11 | Pulmonary Progress Note ---
Subjective Time Seen by a Provider: 05:09 Subjective/Events-last exam PT is doing better. Sepsis Event Evaluation Height, Weight, BMI Height: 5'4" Weight: 140lbs. oz. 63.089655xt; 30.33 BMI Method:Stated Exam Exam Vital Signs Date Time Temp Pulse Resp B/P (MAP) Pulse Ox O2 Delivery O2 Flow Rate FiO2 10/18/19 04:00 90 15 94 Vapotherm 30.00 40.00 10/18/19 04:00 Vapotherm 30.00 40 10/18/19 03:28 36.6 10/18/19 03:00 81 15 99/65 (76) 93 Vapotherm 30.00 40.00 10/18/19 02:04 92 Vapotherm 30.00 40 10/18/19 02:00 82 34 99/62 (74) 93 Vapotherm 30.00 40.00 10/18/19 01:00 88 15 92/59 (70) 89 Vapotherm 30.00 40.00 10/18/19 01:00 88 10/18/19 00:00 Vapotherm 30.00 40 10/18/19 00:00 93 14 119/73 (88) 96 Vapotherm 30.00 40.00 10/18/19 00:00 36.4 10/17/19 23:00 86 15 92/51 (65) 92 Vapotherm 30.00 40.00 10/17/19 22:00 84 16 104/71 (82) 92 Vapotherm 30.00 40.00 10/17/19 21:22 92 Vapotherm 30.00 40 10/17/19 21:00 108 21 133/84 (100) 92 Vapotherm 30.00 40.00 10/17/19 20:44 36.2 10/17/19 20:00 Vapotherm 30.00 40 10/17/19 20:00 95 23 139/71 (93) 95 Vapotherm 30.00 40.00 10/17/19 19:00 108 10/17/19 19:00 114 24 114/98 (103) 91 Vapotherm 30.00 40.00 10/17/19 18:16 92 Vapotherm 30.00 40 10/17/19 18:13 92 Vapotherm 30.00 40 10/17/19 18:00 113 32 88/56 (67) 92 Vapotherm 30.00 40.00 10/17/19 17:00 93 22 125/88 (100) 92 Vapotherm 30.00 40.00 10/17/19 16:00 36.1 98 20 90 Vapotherm 30.00 40.00 10/17/19 16:00 Vapotherm 30.00 40 10/17/19 16:00 98 22 116/70 (85) 95 Vapotherm 30.00 40.00 10/17/19 15:39 92 Vapotherm 30.00 40 10/17/19 15:00 105 20 89/58 (68) 95 Vapotherm 30.00 40.00 10/17/19 14:00 95 20 106/75 (85) 94 Vapotherm 30.00 40.00 10/17/19 13:00 85 10/17/19 13:00 86 19 96/61 (73) 96 Vapotherm 30.00 40.00 10/17/19 12:00 101 23 102/74 (83) 91 Vapotherm 30.00 40.00 10/17/19 11:55 Vapotherm 30.00 40 10/17/19 11:46 36.9 10/17/19 11:00 85 19 104/64 (77) 93 Vapotherm 30.00 40.00 10/17/19 10:27 93 Vapotherm 30.00 40 10/17/19 10:00 85 15 98/53 (68) 98 Vapotherm 30.00 40.00 10/17/19 09:00 105 28 115/68 (84) 91 Vapotherm 30.00 40.00 10/17/19 08:43 Vapotherm 30.00 40 10/17/19 08:09 36.4 10/17/19 08:00 78 19 100 Vapotherm 30.00 40.00 10/17/19 07:18 95 Vapotherm 30.00 40 10/17/19 07:16 95 Vapotherm 30.00 40 10/17/19 07:13 95 Vapotherm 30.00 40 10/17/19 07:00 70 26 109/67 (81) 96 Vapotherm 30.00 40.00 10/17/19 07:00 70 10/17/19 06:00 67 16 98/53 (68) 93 Vapotherm 30.00 40.00 I & O 10/18/19 06:59 Intake Total 1190 ml Output Total 975 ml Balance 215 ml Height & Weight Height: 5'4" Weight: 140lbs. oz. 63.446315re; 30.33 BMI Method:Stated General Appearance: No Apparent Distress, Anxious, Obese HEENT: PERRL/EOMI, Pharynx Normal Neck: Normal Inspection, Supple Respiratory: Decreased Breath Sounds; No Wheezing Cardiovascular: Regular Rate, Rhythm, No Murmur Capillary Refill: Less Than 3 Seconds Extremity: Normal Inspection, Non Tender, No Pedal Edema Neurologic/Psychiatric: Alert, Oriented x3 Skin: Normal Color, Warm/Dry Results Lab Laboratory Tests 10/17/19 02:51 Assessment/Plan Assessment/Plan COVID pneumonia with severe hypoxemia -Currently requiring Vapotherm however FI02 requirments are slowly improving - s/p Remdesivir - Decadron IV 20mg daily - start titrating down. -Will decrease to decadron 10mg PO daily. - s/p convalescent plasma elevated LFTs -Monitor AsthmaAE -Continue Albuterol and advair Anxiety -Xanax as needed Obesity History of VTE Not on chronic anticoagulation DVT Prophylaxis - Lovenox JEVON MANNING DO Oct 18, 2019 05:11
[2019-10-18 06:14] LABS: BASOPHILS % (AUTO) 0 % (0-10); EOSINOPHILS # (AUTO) 0.1 10^3/uL (0.0-0.3); EOSINOPHILS % (AUTO) 1 % (0-10); HEMATOCRIT 41 % (35-52); HEMOGLOBIN 13.7 G/DL (11.5-16.0); LYMPHOCYTES % (AUTO) 12 % (12-44); MEAN CORPUSCULAR HEMOGLOBIN 31 PG (25-34); MEAN CORPUSCULAR HGB CONC 33 G/DL (32-36); MEAN CORPUSCULAR VOLUME 94 FL (80-99); MEAN PLATELET VOLUME 8.8 FL (7.4-10.4); MONOCYTES # (AUTO) 0.5 X 10^3 (0.0-1.0); MONOCYTES % (AUTO) 6 % (0-12); NEUTROPHILS # (AUTO) 7.3 X 10^3 (1.8-7.8); NEUTROPHILS % (AUTO) 81 % (42-75); PLATELET COUNT 430 10^3/uL (130-400); RED CELL DISTRIBUTION WIDTH 12.8 % (10.0-14.5); WHITE BLOOD COUNT 8.9 10^3/uL (4.3-11.0)
[2019-10-18 06:28] LABS: CHLORIDE 101 MMOL/L (98-107); POTASSIUM 3.8 MMOL/L (3.6-5.0); SODIUM 137 MMOL/L (135-145)
[2019-10-18 06:29] LABS: CALCIUM 9.3 MG/DL (8.5-10.1); GLUCOSE 93 MG/DL (70-105)
[2019-10-18 06:31] LABS: CARBON DIOXIDE 22 MMOL/L (21-32)
[2019-10-18] MEDS: MAGNESIUM 1 GM/100 ML IVPB 100 ML IV SCH (06:32)
[2019-10-18] MEDS: POTASSIUM CL 10MEQ/50ML IVPB 50 ML IV SCH (06:32)
[2019-10-18] MEDS: KCL 20 MEQ TAB (K-DUR) PO SCH (06:32)
[2019-10-18 06:33] LABS: CREATININE SERUM 0.61 MG/DL (0.60-1.30); GFR ESTIMATED > 60; PHOSPHORUS 4.2 MG/DL (2.3-4.7)
[2019-10-18] MEDS: inSUlin ASPART (NovoLOG) 1 UNIT/0.01 ML (CHARGE PER UNIT) SC SCH ×4 (06:33→20:42)
[2019-10-18 06:34] LABS: BUN/CREATININE RATIO 25
[2019-10-18 06:36] LABS: MAGNESIUM 2.1 MG/DL (1.6-2.4)
[2019-10-18] MEDS: ADVAIR HFA 115/21 MCG INHALER 8 GM IH SCH ×2 (07:00→21:21)
[2019-10-18] MEDS: UMECLIDINIUM BROMIDE (INCRUSE ELLIPTA) 7'S IH SCH (07:00)
[2019-10-18] MEDS: dexAMETHasone 6 MG TAB (DECADRON) PO SCH (07:35)
[2019-10-18] MEDS: ASPIRIN E.C. 81 MG (ECOTRIN) TAB PO SCH (07:35)
[2019-10-18] MEDS: PANTOPRAZOLE 40 MG (PROTONIX) TAB PO SCH (07:35)
[2019-10-18] MEDS: risperiDONE 1 MG (RisperDAL) TAB PO SCH ×2 (07:35→20:41)
[2019-10-18] MEDS: SENNOSIDES 8.6 MG (SENOKOT) TAB PO SCH ×2 (07:36→20:39)
[2019-10-18] MEDS: DOCUSATE SODIUM 100 MG (COLACE) CAP PO SCH ×2 (07:36→20:39)
[2019-10-18] MEDS: FLUTICASONE NASAL SPRAY (FLONASE) 16 GM BTL NS SCH (07:53)
--- NOTE | 2019-10-18 09:30 | NUR ---
THIS RN RECEIVED REPORT FROM ICE NURSE BRITTA Olivares RN. NURSE INTEGRATION PROJECT MANAGER TAKING OVER CARE OF THE PT AT THIS TIME. SHE IS IN ROOM AND HAS NO COMPLAINTS. SHE SAYS SHE IS HAPPY SHE IS FEELING BETTER.
[2019-10-18] MEDS: ENOXAPARIN 40 MG/0.4 ML (LOVENOX) SYR SC SCH (17:05)
[2019-10-18] MEDS: ALPRAZolam 0.5 MG (XANAX) TAB PO PRN (20:42)
[2019-10-18] MEDS: MONTELUKAST 10 MG (SINGULAIR) TAB PO SCH (20:42)
[2019-10-18] MEDS: MELATONIN 3 MG TABLET PO PRN (20:42)
[2019-10-19 00:30] VITALS: BP 115/57
[2019-10-19] MEDS: RT-ALBUTEROL INHALER HFA (VENTOLIN HFA) 18 GM IH SCH ×6 (02:29→23:05)
[2019-10-19 04:45] VITALS: BP 119/66
[2019-10-19] MEDS: inSUlin ASPART (NovoLOG) 1 UNIT/0.01 ML (CHARGE PER UNIT) SC SCH ×4 (06:59→20:31)
[2019-10-19 07:30] VITALS: BP 101/56
[2019-10-19] MEDS: ADVAIR HFA 115/21 MCG INHALER 8 GM IH SCH ×2 (07:40→18:42)
[2019-10-19] MEDS: UMECLIDINIUM BROMIDE (INCRUSE ELLIPTA) 7'S IH SCH (07:40)
[2019-10-19] MEDS: FLUTICASONE NASAL SPRAY (FLONASE) 16 GM BTL NS SCH (08:56)
[2019-10-19] MEDS: SENNOSIDES 8.6 MG (SENOKOT) TAB PO SCH ×2 (08:57→20:29)
[2019-10-19] MEDS: risperiDONE 1 MG (RisperDAL) TAB PO SCH ×2 (08:57→20:29)
[2019-10-19] MEDS: DOCUSATE SODIUM 100 MG (COLACE) CAP PO SCH ×2 (08:57→20:29)
[2019-10-19] MEDS: ASPIRIN E.C. 81 MG (ECOTRIN) TAB PO SCH (08:57)
[2019-10-19] MEDS: dexAMETHasone 6 MG TAB (DECADRON) PO SCH (08:57)
[2019-10-19] MEDS: PANTOPRAZOLE 40 MG (PROTONIX) TAB PO SCH (08:57)
[2019-10-19] MEDS: ALPRAZolam 0.5 MG (XANAX) TAB PO PRN ×2 (08:57→20:29)
[2019-10-19 12:00] VITALS: BP 110/58
--- NOTE | 2019-10-19 12:39 | Progress Note - Hospitalist ---
Subjective HPI/CC On Admission Date Seen by Provider: Oct 19, 2019 Time Seen by Provider: 12:37 Corrine Cortez is a 63 year old female with PMH asthma who presented with malaise. She was evaluated for COVID at [facility] on 10/04 and tested positive. She reports having body aches. She reports nausea and vomiting. She has had diarrhea. She reports headaches. She is not having any significant shortness of breath or cough. She denies any change in taste or smell. She denies any fevers or chills. She denies chest pain. Subjective/Events-last exam Pt reports feeling much better today. No complaints. Requesting DC home tomorrow. Objective Exam Vital Signs Vital Signs Date Time Temp Pulse Resp B/P (MAP) Pulse Ox O2 Delivery O2 Flow Rate FiO2 10/19/19 11:13 95 High Flow N/C 4.00 10/19/19 07:30 35.0 98 20 101/56 (71) 10/18/19 08:00 40 Capillary Refill : Less Than 3 Seconds General Appearance: No Apparent Distress, WD/WN Respiratory: Lungs Clear, No Respiratory Distress Cardiovascular: Regular Rate, Rhythm, No Murmur Neurologic/Psychiatric: Alert, Oriented x3 Results/Procedures Lab Patient resulted labs reviewed. Imaging: Reviewed Imaging Report Assessment/Plan Assessment and Plan Assess & Plan/Chief Complaint COVID pneumonia with severe hypoxemia -Now on nasal cannula - s/p Remdesivir - Continue decadron at decreased dose - s/p convalescent plasma - Home oxygen study elevated LFTs - Resolved AsthmaAE -Continue Albuterol and advair Anxiety -Xanax as needed Obesity History of VTE Not on chronic anticoagulation DVT Prophylaxis - Lovenox Diagnosis/Problems Diagnosis/Problems (1) Acute respiratory failure due to COVID-19 Status: Acute (2) COVID-19 Status: Acute (3) Elevated LFTs Status: Acute Clinical Quality Measures DVT/VTE Risk/Contraindication: Risk Factor Score Per Nursin RFS Level Per Nursing on Admit: 4+=Very High MARY KAY STUBBS MD Oct 19, 2019 12:39
--- NOTE | 2019-10-19 16:10 | NUR ---
PT WAS TAKEN OFF O2 FOR 30 MINUTES AND PT DESATURATED DOWN TO 79% ON ROOM AIR. PT WAS PLACED ON 3L NC AND HER SP02 CAME UP TO 95% Addendum: 10/19/19 at 1612 by MILVIA ZEPEDA RT Amended: Links added.
[2019-10-19 16:38] VITALS: BP 110/58
[2019-10-19 20:23] VITALS: BP 114/64
[2019-10-19] MEDS: MELATONIN 3 MG TABLET PO PRN (20:29)
[2019-10-19] MEDS: ENOXAPARIN 40 MG/0.4 ML (LOVENOX) SYR SC SCH (20:29)
[2019-10-19] MEDS: MONTELUKAST 10 MG (SINGULAIR) TAB PO SCH (20:30)
[2019-10-20 00:09] VITALS: BP 105/51
[2019-10-20] MEDS: RT-ALBUTEROL INHALER HFA (VENTOLIN HFA) 18 GM IH SCH ×4 (02:16→14:40)
[2019-10-20] MEDS: ALPRAZolam 0.5 MG (XANAX) TAB PO PRN (04:28)
[2019-10-20 04:29] VITALS: BP 118/77
[2019-10-20 04:42] LABS: BASOPHILS % (AUTO) 0 % (0-10); EOSINOPHILS # (AUTO) 0.1 10^3/uL (0.0-0.3); EOSINOPHILS % (AUTO) 1 % (0-10); HEMATOCRIT 39 % (35-52); HEMOGLOBIN 12.7 G/DL (11.5-16.0); LYMPHOCYTES # (AUTO) 1.4 X 10^3 (1.0-4.0); LYMPHOCYTES % (AUTO) 13 % (12-44); MEAN CORPUSCULAR HEMOGLOBIN 31 PG (25-34); MEAN CORPUSCULAR HGB CONC 33 G/DL (32-36); MEAN CORPUSCULAR VOLUME 94 FL (80-99); MEAN PLATELET VOLUME 8.8 FL (7.4-10.4); MONOCYTES # (AUTO) 0.6 X 10^3 (0.0-1.0); MONOCYTES % (AUTO) 6 % (0-12); NEUTROPHILS # (AUTO) 9.2 X 10^3 (1.8-7.8); NEUTROPHILS % (AUTO) 81 % (42-75); PLATELET COUNT 470 10^3/uL (130-400); RED CELL DISTRIBUTION WIDTH 12.9 % (10.0-14.5); WHITE BLOOD COUNT 11.4 10^3/uL (4.3-11.0)
[2019-10-20 04:59] LABS: CHLORIDE 101 MMOL/L (98-107); POTASSIUM 3.8 MMOL/L (3.6-5.0); SODIUM 138 MMOL/L (135-145)
[2019-10-20 05:01] LABS: CALCIUM 8.9 MG/DL (8.5-10.1); GLUCOSE 111 MG/DL (70-105)
[2019-10-20 05:03] LABS: CARBON DIOXIDE 23 MMOL/L (21-32)
[2019-10-20 05:05] LABS: CREATININE SERUM 0.66 MG/DL (0.60-1.30); GFR ESTIMATED > 60; PHOSPHORUS 3.7 MG/DL (2.3-4.7)
[2019-10-20 05:06] LABS: BUN/CREATININE RATIO 24
[2019-10-20 05:07] LABS: MAGNESIUM 2.1 MG/DL (1.6-2.4)
[2019-10-20] MEDS: inSUlin ASPART (NovoLOG) 1 UNIT/0.01 ML (CHARGE PER UNIT) SC SCH ×2 (05:24→12:05)
[2019-10-20] MEDS: ADVAIR HFA 115/21 MCG INHALER 8 GM IH SCH (07:15)
[2019-10-20] MEDS: UMECLIDINIUM BROMIDE (INCRUSE ELLIPTA) 7'S IH SCH (07:15)
[2019-10-20 08:10] VITALS: BP 126/64
[2019-10-20] MEDS ORDERED: dexAMETHasone 6 MG TAB (DECADRON) PO SCH (09:00)
[2019-10-20] MEDS: SENNOSIDES 8.6 MG (SENOKOT) TAB PO SCH (09:15)
[2019-10-20] MEDS: PANTOPRAZOLE 40 MG (PROTONIX) TAB PO SCH (09:15)
[2019-10-20] MEDS: DOCUSATE SODIUM 100 MG (COLACE) CAP PO SCH (09:15)
[2019-10-20] MEDS: risperiDONE 1 MG (RisperDAL) TAB PO SCH (09:15)
[2019-10-20] MEDS: ASPIRIN E.C. 81 MG (ECOTRIN) TAB PO SCH (09:15)
[2019-10-20] MEDS: FLUTICASONE NASAL SPRAY (FLONASE) 16 GM BTL NS SCH (09:15)
--- NOTE | 2019-10-20 09:20 | NUR ---
DISCHARGE PLANNING: Patient is intended to discharge today. She will require Oxygen continuous 3L. Spoke to patient regarding DME options. She is wanting to go with the one closest to the hospital. This is [facility]. I will send order and qualification study once orders are in. Addendum: 10/20/19 at 1212 by FITO FOSTER RN Orders faxed to [facility] for Oxygen at 3 L cont. Nursing aware that we are witing for this to be delivered for discharge.
[2019-10-20] MEDS ORDERED: MELA3TAB39 PO (11:29)
[2019-10-20] MEDS ORDERED: PRED10TA22 PO (11:29)
[2019-10-20 12:07] VITALS: BP 112/68
[2019-10-20 16:23] VITALS: BP 112/68
== END 2019-10-20 16:40 | disposition home or self-care (01) | DRG 177 ==
LOC: EDUNIT# 09:03 → ER 09:08 → 4TH 12:51 → ICU 10-13 12:41 → 4TH 10-18 10:15
PROVIDERS: ADMIT Internal Medicine; ATTEND Internal Medicine
DX: U07.1 COVID-19 (principal); J12.89 Other viral pneumonia; J96.01 Acute respiratory failure with hypoxia; J45.901 Unspecified asthma with (acute) exacerbation; E78.00 Pure hypercholesterolemia, unspecified; R73.9 Hyperglycemia, unspecified; T38.0X5A Adverse effect of glucocorticoids and synthetic analogues, initial encounter; E66.9 Obesity, unspecified; F41.9 Anxiety disorder, unspecified; Z68.30 Body mass index [BMI] 30.0-30.9, adult; Z87.891 Personal history of nicotine dependence
CPT/HCPCS: 36415; 71045; 71275; 76937; 80048; 80053; 81000; 82728; 82805; 82962; 83605; 83615; 83735; 83880; 84100; 84145; 85007; 85025; 85027; 85379; 85384; 85610; 85652; 85730; 86141; 86900; 86901; 87040; 87088; 94640; 94664; 94760; 94761; 96361; 96374; 96375